=== PATIENT | male | born 1940 | race Caucasian/White ===

== ENCOUNTER → 2018-09-06 16:04 | Outpatient (CLI) | payer MEDICARE, SELFPAY ==
[2018-09-06 17:11] LABS: Basophils % 0.8 % (0.1-2.0); Eosinophils # 0.2 K/mm3 (0.0-0.4); Eosinophils % 3.4 % (0.1-12.0); Lymphocytes # 1.1 K/mm3 (0.7-4.5); Mean Corpuscular HGB Conc 26.2 g/dL (31.8-35.4); Mean Corpuscular Hemoglobin 18.6 pg (27.0-31.2); Mean Corpuscular Volume 71.1 fl (80-94); Mean Platelet Volume 6.6 fl (7.4-10.4); Monocytes # 0.3 K/mm3 (0.1-1.0); Neutrophils % 70.8 % (37.0-80.0); Platelet Count 294 K/mm3 (142-424); Red Blood Count 3.22 M/mm3 (4.60-6.20); Red Cell Distribution Width 22.2 % (11.5-17.5); White Blood Count 5.7 K/mm3 (4.8-10.8)
[2018-09-06 17:30] LABS: Hematocrit 22.9 % (42.0-52.0)
== END ==
PROVIDERS: Visit Provider Nurse Practitioner Family
DX: R53.83 Other fatigue (principal)
CPT/HCPCS: 36415; 85025

== ENCOUNTER → 2018-09-07 07:23 | Outpatient (CLI) | payer MEDICARE, SELFPAY ==
[2018-09-07] VITALS (21 sets, daily range): BP systolic 117–171; BP diastolic 53–77; PULSE 61–77; RESP 16–20; TEMP 36.4–37.3; O2SAT 92–97; BMI 24.2
--- NOTE | 2018-09-07 11:49 | PC.NURSE ---
LATE ENTRY -11:00 CARE ROUNDING. PT VOICED NO NEEDS AT THIS TIME.
[2018-09-07 16:33] LABS: Hematocrit 30.2 % (42.0-52.0); Hemoglobin 8.8 g/dL (14.1-18.0)
== END ==
LOC: OUTP 07:41 → INF 08:13
PROVIDERS: PCP Family Medicine; Visit Provider Family Medicine
DX: D64.9 Anemia, unspecified (principal)
CPT/HCPCS: 36415; 36430; 85014; 85018; 86850; P9016

== ENCOUNTER 2019-07-31 08:13 | Outpatient (CLI) | payer MEDICARE, SELFPAY ==
[2019-07-31] VITALS (20 sets, daily range): BP systolic 92–125; BP diastolic 42–64; PULSE 68–83; RESP 16–18; TEMP 36.4–37.1; O2SAT 92–96; BMI 19.0
[2019-07-31 09:10] LABS: Hematocrit 29.5 % (42.0-52.0); Hemoglobin 8.2 g/dL (14.1-18.0)
--- NOTE | 2019-07-31 10:30 | PC.NURSE ---
1025 - STARTED BLOOD TRANSFUSION AT 100 ML/HR AT THIS TIME.
--- NOTE | 2019-07-31 11:00 | PC.NURSE ---
INCREASED RATE TO 150 ML/HR AT THIS TIME.
--- NOTE | 2019-07-31 11:31 | PC.NURSE ---
INCREASED RATE TO 200ML/HR AT THIS TIME.
--- NOTE | 2019-07-31 12:36 | PC.NURSE ---
1235 - TRANSFUSION STARTED AT 100ML/HR AT THIS TIME.
--- NOTE | 2019-07-31 14:48 | PC.NURSE ---
07/31/19 1305 Pt becca transfusion of 2nd unit of blood well at this time. Patient denies c/o. IV patent with no problems noted. Resp easy/reg, lungs CTA. Eating lunch. VSS. No s/s transfusion reaction noted. Reviewed s/s of transfusion reaction with pt/pt verbalizes understanding of all instruction.
--- NOTE | 2019-07-31 14:53 | PC.NURSE ---
07/31/19 1305 Increased IV rate of blood to 150ml/hr at this time
--- NOTE | 2019-07-31 14:54 | PC.NURSE ---
07/31/49 1335 Pt continues to tolerate transfusion of 2nd unit of blood well with no s/s reaction or problems noted. VSS. Pt denies any c/o at this time. Increased IV rate of blood to 200ml/hr at this time.
--- NOTE | 2019-07-31 14:54 | PC.NURSE ---
07/31/19 1435 Pt tolerating transfusion of 2nd unit of blood well at this time with no s/s reaction or problems noted. VSS. Pt continues to deny c/o. Resp easy/reg.
--- NOTE | 2019-07-31 14:56 | PC.NURSE ---
07/31/19 1440 Transfusion of 2nd unit of blood complete at this time. Pt becca very well. No s/s reaction or problems noted. VSS.
--- NOTE | 2019-07-31 15:46 | PC.NURSE ---
07/31/19 1445 Pt discharged home/stable. Patient denies c/o, has tolerated transfusion of 2 units blood with no problems noted/no s/s transfusion reaction noted. 1 hour post transfusion H&H drawn prior to discharge/pending.
--- NOTE | 2019-07-31 15:49 | PC.NURSE ---
07/31/19 1545 Patient discharged home/stable, has tolerated transfusion of 2 units blood with no problems/no s/s transfusion reaction noted. VSS. Patient denies c/o. 1 hour post transfusion H&H drawn prior to discharge home/pending.
[2019-07-31 16:32] LABS: Hemoglobin 10.6 g/dL (14.1-18.0)
== END 2019-07-31 15:45 | disposition home or self-care (01) ==
LOC: INF 08:17
PROVIDERS: PCP Family Medicine; Visit Provider Nurse Practitioner Family
DX: D64.9 Anemia, unspecified (principal)
CPT/HCPCS: 36430; 85014; 85018; 86850; P9016

== ENCOUNTER 2019-10-16 07:37 | Inpatient (IN) ==
[2019-10-16 08:01] LABS: Microscopic, Urine URINE MICROSCOPIC (MICROSCOPIC)
[2019-10-16 08:02] LABS: Basophils % 0.2 % (0.1-2.0); Eosinophils % 0.1 % (0.1-12.0); Lymphocytes # 0.7 K/mm3 (0.7-4.5); Lymphocytes % 3.6 % (10-50); Mean Corpuscular HGB Conc 29.1 g/dL (31.8-35.4); Mean Corpuscular Volume 90.9 fl (80-94); Mean Platelet Volume 7.7 fl (7.4-10.4); Monocytes # 0.6 K/mm3 (0.1-1.0); Monocytes % 3.1 % (1.7-9.3); Neutrophils # 17.9 K/mm3 (1.8-7.8); Neutrophils % 92.9 % (37.0-80.0); Platelet Count 644 K/mm3 (142-424); Red Blood Count 2.61 M/mm3 (4.60-6.20); Red Cell Distribution Width 19.4 % (11.5-17.5); White Blood Count 19.3 K/mm3 (4.8-10.8)
--- NOTE | 2019-10-16 08:04 | Emergency Department Note ---
ED Disposition Clinical Impression: Mass of colon, Electrolyte imbalance Sepsis Qualifiers: Sepsis type: sepsis due to unspecified organism Sepsis acute organ dysfunction status: without acute organ dysfunction Qualified Code(s): A41.9 - Sepsis, unspecified organism Anemia Qualifiers: Anemia type: unspecified type Qualified Code(s): D64.9 - Anemia, unspecified Abdominal pain Qualifiers: Abdominal location: lower abdomen, unspecified Qualified Code(s): R10.30 - Lower abdominal pain, unspecified Disposition: Admitted As Inpatient Condition on Discharge: Fair (Stable) Instructions: DI for Acute Abdomen Referrals: Obdulia Granados APRN [Primary Care Provider] - Time of Disposition: 09:21 - Critical Care Critical Care Time: No Attestation: On , the high probability of a clinically significant, sudden or life threatening deterioration of the following system(s) required my full and direct attention, intervention and personal management. The time I documented below is in addition to time spent performing reported procedures but includes the following listed in this critical care notation. Medical Decision Making - Medical Records Medical records reviewed: Yes: I reviewed the patient's medical records. - Gasper Inquiry Pt receiving controlled substance: No Gasper was queried for this patient: No Vital Signs: 10/16/19 07:50 10/16/19 09:13 Temperature 97.4 F L Temperature Source Oral Pulse Rate [Right Radial] 100 H 80 Respiratory Rate 18 20 Blood Pressure [Right Arm] 147/62 H 117/56 L Blood Pressure Mean [Right Arm] 90 76 02 Sat by Pulse Oximetry 91 L 92 L Oxygen Delivery Method Room Air Nasal Cannula Oxygen Flow Rate (LPM) 2 - Lab Data Lab results reviewed: Yes: I reviewed the patient's lab results. Lab Results 10/16/19 07:48: Urine Color [place], Urine Appearance Cloudy, Urine pH 6.5, Ur Specific Berry 1.025, Urine Protein 2+, Urine Glucose (UA) Negative, Urine Ketones Trace, Urine Blood Negative, Urine Nitrate Positive, Urine Bilirubin Negative, Urine Urobilinogen >=8.0, Ur Leukocyte Esterase 2+ A, Urine RBC 5-10, Urine WBC 10-20, Ur Squamous Epith Cells 3-5, Ur Transition Epith Cell Occ, Urine Bacteria 1+, Hyaline Casts 3-5, Urine Mucus 2+ 10/16/19 07:50: WBC 19.3 H, RBC 2.61 L, Hgb 6.9 L*, Hct 23.7 L*, MCV 90.9, MCH 26.5 L, MCHC 29.1 L, RDW 19.4 H, Plt Count 644 H, MPV 7.7, Neut % (Auto) 92.9 H, Lymph % (Auto) 3.6 L, Lewis % (Auto) 3.1, Eos % (Auto) 0.1, Baso % (Auto) 0.2, Neut # (Auto) 17.9 H, Lymph # (Auto) 0.7, Lewis # (Auto) 0.6, Eos # (Auto) 0.0, Baso # (Auto) 0.0, Total Counted 100, Neutrophils % (Manual) 92 H, Lymphocytes % (Manual) 4 L, Monocytes % (Manual) 4, Platelet Estimate Clumped, RBC Morphology Not Reportable, Hypochromasia 1+, ESR > 140 H 10/16/19 07:50: Sodium 130 L, Potassium 3.3 L, Chloride 94 L, Carbon Dioxide 26, Anion Gap 13.3, BUN 11, Creatinine 1.04, Estimated Creat Clear 45, Estimated GFR 69, Est GFR ( Amer) 83, Glucose 105, Calcium 7.8 L, C-Reactive Protein 13.6 H, Lipase 59 L 10/16/19 08:55: Stool Occult Blood Positive A 10/16/19 09:00: Crossmatch (AHG) See Detail Result diagrams: 10/16/19 07:50 10/16/19 07:50 Orders (Tests/Meds): ED MEDICATIONS Generic Name Dose Route Start Last Admin Trade Name Freq PRN Reason Stop Dose Admin Sodium Chloride 250 mls @ 25 mls/hr 10/16/19 08:30 Sod Chlor 0.9% 250ml Bag IV 10/17/19 08:29 .Q10H ARSENIO Discontinued Medications Generic Name Dose Route Start Last Admin Trade Name Freq PRN Reason Stop Dose Admin Sodium Chloride 1,000 mls @ 999 mls/hr 10/16/19 08:00 Sod Chlor 0.9% 1000ml Bag IV 10/16/19 09:00 .Q1H1M ARSENIO Sodium Chloride 1,000 mls @ 999 mls/hr 10/16/19 08:00 10/16/19 08:00 Sod Chlor 0.9% 1000ml Bag IV 10/16/19 09:00 999 mls/hr .Q1H1M ARSENIO Administration Ioversol 75 ml 10/16/19 08:36 10/16/19 08:37 Rad-Optiray 350 100ml Vial IV 10/16/19 08:37 75 ml ONCE ONE Administration Protocol Sodium Chloride 10 ml 10/16/19 08:36 10/16/19 08:37 Rad-Saline Flush 10ml Syringe IV 10/16/19 08:37 10 ml ONCE ONE Administration ORDERS Category Date Time Status Transfuse RBC's [Red Blood Cells] Stat BBK 10/16/19 09:00 Received Type and Screen Stat BBK 10/16/19 09:00 Received Diarrhea 6-11 Panel, Cdiff PCR Stat Lab 10/16/19 08:55 Received Lactic Acid Stat Lab 10/16/19 09:00 Received Blood Culture Stat Micro 10/16/19 09:05 Received Urine Culture Stat Micro 10/16/19 07:48 Received - CT Data CT Scan: Abdomen, Pelvis Time Received: 09:[address] Reviewed: Yes: I have reviewed the patient's CT results Findings Narrative: [address] [place] [address] [address] Scan Report Signed Patient: Arley Dailey MR#: [id number] : 1940 Acct:[id number] Age/Sex: 79 / M ADM Date: 10/16/19 Loc: ER Attending Dr: Ordering Physician: Douglas Mccracken MD Date of Service: 10/16/19 Procedure(s): CT abdomen pelvis w con Accession Number(s): [id number] cc: Erick Arcos MD; Douglas Mccracken MD; Obdulia Granados APRN~ PROCEDURE: CT ABDOMEN PELVIS W CON CLINICAL INDICATION: abd pain Cramping diarrhea 4 months COMPARISON: 08/19/2019 TECHNIQUE: IV Contrast: 75ML OPTIRAY 350 Oral Contrast 20ml Gastroview Axial images obtained with sagittal and coronal reformats. All CT scans at the facility use one or more dose reduction, viz: automated exposure control, ma/kV adjustment per patient size (including targeted exams where dose is matched to indication, i.e. head), or iterative reconstruction technique. FINDINGS: LOWER THORAX: There is continued bronchiectasis in the right lung base with emphysematous areas of air trapping in both lungs.3 ABDOMEN & PELVIS: There is diffuse fatty infiltration of the liver. A hypodense lesion is seen now in the right liver dome images 16-18 series 3 approximately 1.3 x 1.7 centimeters in AP and cephalocaudal dimensions. This could represent an area of additional fat infiltration or a neoplasm. There is mild splenomegaly without a discrete lesion. Unchanged parapelvic cysts of the left kidney are noted. The liver, spleen, pancreas, adrenal glands, and kidneys show no acute finding. There is an abnormal conglomerate soft tissue density in the left pelvis possibly arising from the sigmoid colon. This measures at least 4.1 x 4.7 centimeters and is seen on images 81-9 series 3. Sigmoid colonic neoplasm should be considered 1st. Colonoscopy when considered safe is recommended to further evaluate this patient. There is otherwise some wall thickening of the incompletely distended rectosigmoid colon and an air-fluid level is seen in the rectum. These findings are similar to previous exam and would raise the question of colitis. Some increased attenuation of the pericolonic fat planes is noted. No intestinal obstruction or free air or fluid. There is circumferential wall thickening of nondistended urinary bladder unchanged from the previous exam. This could be due to cystitis, or nondistention. The prostate gland appears enlarged and there is extrinsic mass effect on the base of the urinary bladder as before. There is relatively intense enhancement of the prostate gland. This could signify prostatitis. Large prostate neoplasm would be in the differential diagnosis as a less likely consideration.. Correlation with digital rectal exam and PSA is recommended. A stable fluid collection 2.3 x 2.6 centimeters is seen in the right pelvis near the origin of the right inguinal canal. Seroma or lymphocele is suspected. No acute bony anomalies. IMPRESSION: Soft tissue mass along the superior aspect of the sigmoid colon 4.1 x 4.7 centimeters suspicious for colonic origin malignant neoplasm. Inflamed lymphadenopathy could give this appearance. A new hypodense liver lesion could represent a metastasis, other neoplasm, or additional focal fatty infiltration.. Continued findings consistent with rectosigmoid inflammation/colitis as described previously. Heterogeneous enlarged prostate gland with mass effect upon the base of the urinary bladder and enhancement Dictated by: Erick Arcos 10/16/2019 09:01 Electronically signed by Erick Arcos in [place] 10/16/2019 09:01 Medical Decision Narrative: 08:08 Pt evaluated. Screening labs and CT abdomen/pelvis w/IV contrast ordered. 09:[address] of the abdomen and pelvis with IV contrast report reviewed. Case subsequently discussed with Dr. De La Torre. He has agreed to admit this patient. I have ordered Invanz 1 g IV piggyback. Patient has been typed and crossmatched for 2 units of packed red blood cells to be transfused. I have discussed results of work-up, diagnosis and care plan with patient and family. They understand, agree and all questions answered. Patient will now be admitted. Abdominal Pain HPI - General Chief Complaint: Abdominal Pain Stated Complaint: stomach pain,cramping Time Seen by Provider: 10/16/19 08:03 Mode of Arrival: Ambulatory Limitations: No Limitations Description of Symptoms (Recalled from ER Triage Doc. by RN): pt presents to ed with c/o chills, diarrhea when he eats, and lower abdominal pain. - History of Present Illness HPI narrative: Patient is here in emergency room from home for evaluation complaining having lower abdominal pain. He apparently began to have discomfort on Sunday and it has persisted and gotten worse since that time. Patient has had some loose stools; however, the patient apparently has been having the loose stools since summer according to his family member. No chest pain or shortness of breath. He has had some chills. No documented fever. No nausea or vomiting. - Related Data Home Medications Medication Instructions Recorded Confirmed Aspirin [Aspir 81] 81 mg PO HS 07/31/19 08/19/19 Dapsone 150 mg PO DAILY 07/31/19 08/19/19 Ferrous Sulfate [Ferrous Sulfate 325 mg PO DAILY 07/31/19 08/19/19 325mg Tablet] Levothyroxine Sodium 50 mcg PO DAILY 07/31/19 08/19/19 [Levothyroxine 50mcg (0.05mg) Tab] Metoprolol Tartrate [Lopressor 12.5 mg PO BID 07/31/19 08/19/19 25mg tablet] Nitroglycerin 0.4 mg SL NEEDED PRN 07/31/19 08/19/19 Omeprazole [Omeprazole 20mg 20 mg PO DAILY 07/31/19 08/19/19 Capsule] Previous Rx's Medication Instructions Recorded Ciprofloxacin HCl [Cipro 500mg 500 mg PO BID 7 Days #14 tab 08/19/19 Tab] Nitrofurantoin Monohyd/M-Cryst 100 mg PO BID 7 Days #14 cap 08/19/19 [Macrobid 100 mg Capsule] metroNIDAZOLE [Flagyl 500mg 500 mg PO BID 7 Days #14 tab 08/19/19 Tablet] Allergies Allergy/AdvReac Type Severity Reaction Status Date / Time tuberculin, purified protein Allergy Unknown Verified 07/31/19 08:56 deriva [TUBERCULIN, PURIFIED PROTEIN DERIVA] [facility] History - Hepatitis A Screen Drug use history?: No High risk sexual behaviors?: No History of sexually transmitted infection?: No Currently employed?: No Childcare worker?: No Do you have indoor plumbing?: Yes Do you have electricity?: Yes Attestation statement:: This patient has been screened for Hepatitis A risk factors. I have reviewed the patient's past medical history: Yes Medical History: Reports:: Cancer (SKIN CANCERS), Coronary Artery Disease, Hypertension Denies:: Diabetes Mellitus Type 1, Diabetes Mellitus Type 2 Other Medical History: Reports: Anemia, Cataracts, Hypothyroidism Other Surgeries: Yes: Cancer Surgery (SKIN CANCERS REMOVED), Cardiac Catheterization, Hernia Repair, Other (LEFT HAND SURGERY) - Social History Smoking Status: Former smoker Tobacco Type: smokeless tobacco # Packs/Day (cigarettes): 1 Alcohol Intake: never Occupational Status: retired Housing: house Household Members: none Family Hx:: Anemia, Cancer, Coronary Artery Disease, Diabetes, Stroke, Thyroid Disorder, Alcoholism, Mental illness ROS Obtained: Yes All systems reviewed & no additional complaints - Constitutional Constitutional: Reports system reviewed and no additional complaints, except as docu, Reports as per HPI, Reports chills - Eyes Eyes: Reports system reviewed and no additional complaints, except as docu - ENT Ears, Nose, Mouth, and Throat: Reports system reviewed and no additional complaints, except as docu - Cardiovascular Cardiovascular: Reports system reviewed and no additional complaints, except as docu - Respiratory Respiratory: Yes system reviewed and no additional complaints, except as docu - Gastrointestinal Gastrointestingal: Reports: system reviewed and no additional complaints, except as docu, as per HPI, loose stools (since summer). Denies: constipation, nausea, vomiting - Genitourinary Male Genitourinary: Reports system reviewed and no additional complaints, except as docu - Musculoskeletal Musculoskeletal: Reports system reviewed and no additional complaints, except as docu - Integumentary/Breasts Skin/Breast: Reports system reviewed and no additional complaints, except as docu - Neurologic Neurologic: Reports system reviewed and no additional complaints, except as docu - Endocrine Endocrine: Reports system reviewed and no additional complaints, except as docu - Hematologic/Lymphatic Henatologic/Lymphatic: Reports system reviewed and no additional complaints, except as docu - Allergic/Immunologic Allergic/Immunologic: Reports system reviewed and no additional complaints, except as docu Physical Exam - General General appearance: alert, in no apparent distress - Head Head exam: atraumatic, normocephalic - Eye Eye exam: Present: PERRL, EOMI - ENT ENT exam: Present: mucous membranes moist - Neck Neck exam: Present: trachea midline - Chest Chest inspection: Present: normal inspection, symmetric chest wall rise - Respiratory Respiratory exam: Present: normal lung sounds bilaterally. Absent: respiratory distress, wheezes - Cardiovascular Cardiovascular exam: Present: regular rate, normal heart sounds - Abdominal Exam Abdominal exam: Present: soft, tenderness (on palpation of bilateral lower abdomen), diminished bowel sounds. Absent: guarding, rebound, rigidity, Pearce's sign, tenderness at McBurney's Point - Extremities Exam Extremities exam: Present: normal inspection, full ROM - Neurological Exam Neurological exam: Present: alert, oriented X3, CN II-XII intact - Psychiatric Psychiatric exam: Present: normal mood, flat affect - Skin Skin exam: Present: warm, dry, intact. Absent: rash, diaphoresis
[2019-10-16 08:07] LABS: Blood, Urine Negative (Negative); Glucose,Urine (UA) Negative (Negative); Ketones,Urine TRACE (Negative); Leukocyte Esterase,Urine 2+ (Negative); PH,Urine 6.5 (5.0-8.5); Protein,Urine 2+ (Negative); Specific Gravity, Urine 1.025 (1.005-1.030); Urobilinogen,Urine >=8.0 EU/dl (0.2)
[2019-10-16 08:11] LABS: Hematocrit 23.7 % (42.0-52.0); Hemoglobin 6.9 g/dL (14.1-18.0)
[2019-10-16 08:14] LABS: Anion Gap 13.3 mEq/L (5-15); Calcium 7.8 mg/dL (8.5-10.1)
[2019-10-16 08:16] LABS: C-Reactive Protein 13.6 mg/dL (0.0-0.9)
[2019-10-16 08:27] LABS: Erythrocyte Sedimentation Rate > 140 mm/hr (0-20)
[2019-10-16 08:30] LABS: Lymphocytes % 4 % (10-50); Monocytes % 4 % (2-9); Neutrophils % 92 % (42-76); Total Cells Counted 100
[2019-10-16 08:31] LABS: Hypochromasia 1+
[2019-10-16 08:35] LABS: Color,Urine Orange (Yellow)
[2019-10-16 08:36] LABS: Appearance,Urine Cloudy (Clear); Bilirubin,Urine Negative (Negative)
[2019-10-16 08:43] LABS: Bacteria,Urine 1+ /lpf; Mucus,Urine 2+ /lpf
[2019-10-16 08:44] LABS: Transitional Epi Cells,Urine OCC #/lpf (0-3)
--- NOTE | 2019-10-16 10:20 | Pharmacy Consult Notes ---
[facility] Pharmacy VTE Monitoring - Patient Demographics Admission date: 10/16/19 Report Date: 10/16/19 Time: 10:19 Allergies/Adverse Reactions: Patient Allergies tuberculin, purified protein deriva [TUBERCULIN, PURIFIED PROTEIN DERIVA] Allergy (Unknown, Verified 07/31/19 08:56) Height: 1.7 m Weight: 56.699 kg Patient Problems: Current Active Problems Abdominal pain (Acute) Anemia (Acute) Sepsis (Acute) Mass of colon (Acute) Electrolyte imbalance (Acute) - VTE Risk Labs: VTE Related Lab Results Hgb 6.9 g/dL (14.1-18.0) L* 10/16/19 07:50 Hct 23.7 % (42.0-52.0) L* 10/16/19 07:50 Plt Count 644 K/mm3 (142-424) H 10/16/19 07:50 BUN 11 mg/dL (7-18) 10/16/19 07:50 Creatinine 1.04 mg/dL (0.70-1.30) 10/16/19 07:50 Estimated Creat Clear 45 mL/min (50-200) 10/16/19 07:50 - Prophylaxis VTE Prophylaxis Ordered?: Yes Types of VTE Prophylaxis: TEDS Knee High Location of Applied Device: Bilateral Lower Extremeties - VTE Diagnosis Confirmed Treatment or plan recommended: Continue Current Treatment
[2019-10-16 16:39] LABS: Hematocrit 27.3 % (42.0-52.0); Hemoglobin 8.6 g/dL (14.1-18.0)
--- NOTE | 2019-10-16 17:12 | History & Physical Report ---
*Admission Date: 10/16/19 *Chief complaint: abdominal pain *History of present illness: 79-year-old male presented to the emergency department this morning after being brought in by his family due to complaints of abdominal pain with abdominal distention. Patient endorses chronic diarrhea. Patient has had previous bouts of similar abdominal pain in his lower quadrants, most recently in July 2019. At that time CT scan showed findings of colitis in the rectosigmoid area. Repeat CT scan today also showed colitis in the rectosigmoid area along with a possible sigmoid mass. Patient's white count was 19,000 and he met criteria for sepsis. Patient was admitted on IV Invanz. He was also found to be anemic and has already been transfused 2 units of packed red blood cells with adequate response. He reports a long history of diarrhea. He also has a long history of recurring anemia requiring blood transfusions. Colonoscopy has been offered to the patient in the past and he is repeatedly refused. His of breast cancer. He has a daughter who also has an unidentified cancer and his father of liver cancer [facility] History I have reviewed the patient's past medical history: Yes Medical History: Reports:: Cancer (SKIN CANCERS), Coronary Artery Disease, Hypertension Denies:: Diabetes Mellitus Type 1, Diabetes Mellitus Type 2 *Have you ever received a pneumonia vaccine?: No *Have you received a flu vaccine this season?: No Other Medical History: Reports: Anemia, Cataracts, Hypothyroidism Other Surgeries: Yes: Cancer Surgery (SKIN CANCERS REMOVED), Cardiac Catheterization, Hernia Repair, Other (LEFT HAND SURGERY) - *Social History Smoking Status: Former smoker Tobacco Type: smokeless tobacco # Packs/Day (cigarettes): 1 Alcohol Intake: never *Occupational Status:: retired Housing: house Household Members: none *Travel in the last 8 weeks: None Family Hx:: Anemia, Cancer, Coronary Artery Disease, Diabetes, Stroke, Thyroid Disorder, Alcoholism, Mental illness Review of Systems - Constitutional Reports weakness, Denies body ache(s), Denies chills, Denies fever(s) - *Cardiovascular Denies chest pain - *Respiratory Denies change in phlegm color - *Gastrointestinal Reports abdominal pain, Reports bloating, Reports change in bowel habits, Reports cramping, Reports loose stools, Reports constant urge to pass stool, Denies constipation, Denies heartburn, Denies black, tarry stools, Denies nausea Meds Home Medications Medication Instructions Recorded Confirmed Type Aspirin [Aspir 81] 81 mg PO HS 07/31/19 10/16/19 History Levothyroxine Sodium 50 mcg PO DAILY 07/31/19 10/16/19 History [Levothyroxine 50mcg (0.05mg) Tab] Metoprolol Tartrate [Lopressor 12.5 mg PO BID 07/31/19 10/16/19 History 25mg tablet] Omeprazole [Omeprazole 20mg 20 mg PO DAILY 07/31/19 10/16/19 History Capsule] RX: Dapsone 150 mg PO DAILY 07/31/19 10/16/19 History RX: Nitroglycerin 0.4 mg SL NEEDED PRN 07/31/19 10/16/19 History Allergies Allergy/AdvReac Type Severity Reaction Status Date / Time tuberculin, purified protein Allergy Unknown Verified 07/31/19 08:56 deriva [TUBERCULIN, PURIFIED PROTEIN DERIVA] Exam Vital signs and Labs for Last 24 Hours: Temp Pulse Resp BP Pulse Ox 98.8 F 80 16 142/60 H 91 L 10/16/19 15:25 10/16/19 15:25 10/16/19 15:25 10/16/19 15:25 10/16/19 15:25 Laboratory Results - last 24 hr 10/16/19 07:48: Urine Color [place], Urine Appearance Cloudy, Urine pH 6.5, Ur Specific [place] 1.025, Urine Protein 2+, Urine Glucose (UA) Negative, Urine Ketones Trace, Urine Blood Negative, Urine Nitrate Positive, Urine Bilirubin Negative, Urine Urobilinogen >=8.0, Ur Leukocyte Esterase 2+ A, Urine RBC 5-10, Urine WBC 10-20, Ur Squamous Epith Cells 3-5, Ur Transition Epith Cell Occ, Urine Bacteria 1+, Hyaline Casts 3-5, Urine Mucus 2+ 10/16/19 07:50: WBC 19.3 H, RBC 2.61 L, Hgb 6.9 L*, Hct 23.7 L*, MCV 90.9, MCH 26.5 L, MCHC 29.1 L, RDW 19.4 H, Plt Count 644 H, MPV 7.7, Neut % (Auto) 92.9 H, Lymph % (Auto) 3.6 L, [place] % (Auto) 3.1, Eos % (Auto) 0.1, Baso % (Auto) 0.2, Neut # (Auto) 17.9 H, Lymph # (Auto) 0.7, [place] # (Auto) 0.6, Eos # (Auto) 0.0, Baso # (Auto) 0.0, Total Counted 100, Neutrophils % (Manual) 92 H, Lymphocytes % (Manual) 4 L, Monocytes % (Manual) 4, Platelet Estimate Clumped, RBC Morphology Not Reportable, Hypochromasia 1+, ESR > 140 H 10/16/19 07:50: Sodium 130 L, Potassium 3.3 L, Chloride 94 L, Carbon Dioxide 26, Anion Gap 13.3, BUN 11, Creatinine 1.04, Estimated Creat Clear 45, Estimated GFR 69, Est GFR ( Amer) 83, Glucose 105, Calcium 7.8 L, C-Reactive Protein 13.6 H, Lipase 59 L 10/16/19 07:50: TSH 0.50 D 10/16/19 08:55: Stl Aeromonas (PCR) Not detected, Stl C. cayetanensis PCR Not detected, Stool Rotavirus (PCR) Not detected, Stl Adenov F 40/41 PCR Not detected, Stool Astrovirus (PCR) Not detected, Stool Campylobacter PCR Not detected, Stl C.difficile Tox PCR Not detected, Stool Cryptosporidium PCR Not detected, Stl E.coli Shiga Tox PCR Not detected, Stool E coli O157 PCR Not detected, Stl Enterotoxigenic E PCR Not detected, Stool EPEC (PCR) Not detected, Stool EAEC (PCR) Not detected, Stl E. histolytica PCR Not detected, Stool Giardia Lamblia PCR Not detected, Stool Salmonella PCR Not detected, Stool Sapovirus (PCR) Not detected, Stl P. shigelloides PCR Not detected, Stl Shigella/EIEC PCR Not detected, St Y.enterocolitica PCR Not detected, Stool Vibrio (PCR) Not detected, Stl Vibrio cholerae PCR Not detected, Stl Norovirus GI/GII PCR Not detected 10/16/19 08:55: Stool Occult Blood Positive A 10/16/19 09:00: Blood Type O Positive, Antibody Screen Negative, Crossmatch (AHG) See Detail 10/16/19 09:00: Lactate 2.5 H 10/16/19 13:38: Lactate 0.9 10/16/19 16:25: Hgb 8.6 L D, Hct 27.3 L I & O for Last 24 hours: Intake & Output 10/14/19 10/15/19 10/16/19 10/17/19 11:59 11:59 11:59 11:59 Intake Total 1000 / 1000 522.25 / 522.25 Balance 1000 / 1000 522.25 / 522.25 Weight 126 lb 3 oz Narrative: Elderly male in no acute distress. Is reported by nursing his pallor has improved. ENT exam is grossly normal. Lungs are clear to auscultation. Heart has a regular rate and rhythm. Abdomen is mildly distended with left and right lower quadrant tenderness to palpation with active bowel sounds. Extremities are without edema. Neurologically there is no gross neurologic deficit. Assessment and Plan (1) Neoplasm of uncertain behavior of colon Current visit: Yes Status: Suspected Category: Medical Code(s): D37.4 - Neoplasm of uncertain behavior of colon (2) Abdominal pain Current visit: Yes Status: Acute Qualifiers: Abdominal location: lower abdomen, unspecified Qualified Code(s): R10.30 - Lower abdominal pain, unspecified Category: Medical Code(s): R10.9 - Unspecified abdominal pain (3) Colitis Current visit: No Status: Acute Category: Medical Code(s): K52.9 - Noninfective gastroenteritis and colitis, unspecified (4) Diarrhea Current visit: No Status: Acute Category: Medical Code(s): R19.7 - Kathi rrhea, unspecified (5) Urinary tract infection Current visit: No Status: Acute Category: Medical Code(s): N39.0 - Urinary tract infection, site not specified (6) Anemia due to GI blood loss Current visit: Yes Status: Acute Category: Medical Code(s): D50.0 - Iron deficiency anemia secondary to blood loss (chronic) - Assessment and plan all Dx Assessment and Plan for all problems:: 1. Patient has been transfused 2 units of packed red blood cells with adequate response. He will have repeat H&H this evening with possible additional transfusions 2. While patient is been resistant in the past to colonoscopy I did discuss need for limited viewing of the area where there is an apparent mass. He is agreeable to gastroenterology consultation with limited colonoscopy and or flexible sigmoidoscopy by Dr. Leo. Consultation will be placed. Patient will be given an enema this evening. 3. Continue broad-spectrum antibiotic coverage
[2019-10-16 22:08] LABS: Hematocrit 26.6 % (42.0-52.0); Hemoglobin 8.3 g/dL (14.1-18.0)
[2019-10-17 06:43] LABS: Basophils % 0.2 % (0.1-2.0); Eosinophils # 0.1 K/mm3 (0.0-0.4); Eosinophils % 0.9 % (0.1-12.0); Mean Platelet Volume 8.1 fl (7.4-10.4); Monocytes % 3.5 % (1.7-9.3)
[2019-10-17 06:46] LABS: Hematocrit 37.2 % (42.0-52.0); Lymphocytes # 0.8 K/mm3 (0.7-4.5); Lymphocytes % 5.8 % (10-50); Mean Corpuscular HGB Conc 32.2 g/dL (31.8-35.4); Mean Corpuscular Volume 87.1 fl (80-94); Monocytes # 0.5 K/mm3 (0.1-1.0); Neutrophils # 11.6 K/mm3 (1.8-7.8); Neutrophils % 89.6 % (37.0-80.0); Platelet Count 320 K/mm3 (142-424); Red Blood Count 4.28 M/mm3 (4.60-6.20); Red Cell Distribution Width 17.3 % (11.5-17.5)
[2019-10-17 06:52] LABS: Anion Gap 11.4 mEq/L (5-15)
--- NOTE | 2019-10-17 07:23 | Progress Note ---
Internal Medicine - PN: Subj *Date: 10/17/19 *Time: 07:21 Interval history: Patient states he is feeling better this morning and he would like to go home. I did remind the patient he did agree to limited colonoscopy or flexible sigmoidoscopy for evaluation of potential sigmoid mass. Exam Vital signs and Labs for Last 24 Hours: Temp Pulse Resp BP Pulse Ox 98.0 F 71 18 133/57 L 93 L 10/17/19 06:00 10/17/19 06:00 10/17/19 06:00 10/17/19 06:00 10/17/19 06:00 Laboratory Results - last 24 hr 10/16/19 07:48: Urine Color [place], Urine Appearance Cloudy, Urine pH 6.5, Ur Specific [place] 1.025, Urine Protein 2+, Urine Glucose (UA) Negative, Urine Ketones Trace, Urine Blood Negative, Urine Nitrate Positive, Urine Bilirubin Negative, Urine Urobilinogen >=8.0, Ur Leukocyte Esterase 2+ A, Urine RBC 5-10, Urine WBC 10-20, Ur Squamous Epith Cells 3-5, Ur Transition Epith Cell Occ, Urine Bacteria 1+, Hyaline Casts 3-5, Urine Mucus 2+ 10/16/19 07:50: WBC 19.3 H, RBC 2.61 L, Hgb 6.9 L*, Hct 23.7 L*, MCV 90.9, MCH 26.5 L, MCHC 29.1 L, RDW 19.4 H, Plt Count 644 H, MPV 7.7, Neut % (Auto) 92.9 H, Lymph % (Auto) 3.6 L, [place] % (Auto) 3.1, Eos % (Auto) 0.1, Baso % (Auto) 0.2, Neut # (Auto) 17.9 H, Lymph # (Auto) 0.7, [place] # (Auto) 0.6, Eos # (Auto) 0.0, Baso # (Auto) 0.0, Total Counted 100, Neutrophils % (Manual) 92 H, Lymphocytes % (Manual) 4 L, Monocytes % (Manual) 4, Platelet Estimate Clumped, RBC Morphology Not Reportable, Hypochromasia 1+, ESR > 140 H 10/16/19 07:50: Sodium 130 L, Potassium 3.3 L, Chloride 94 L, Carbon Dioxide 26, Anion Gap 13.3, BUN 11, Creatinine 1.04, Estimated Creat Clear 45, Estimated GFR 69, Est GFR ( Amer) 83, Glucose 105, Calcium 7.8 L, C-Reactive Protein 13.6 H, Lipase 59 L 10/16/19 07:50: TSH 0.50 D 10/16/19 08:55: Stl Aeromonas (PCR) Not detected, Stl C. cayetanensis PCR Not detected, Stool Rotavirus (PCR) Not detected, Stl Adenov F 40/41 PCR Not detect ed, Stool Astrovirus (PCR) Not detected, Stool Campylobacter PCR Not detected, Stl C.difficile Tox PCR Not detected, Stool Cryptosporidium PCR Not detected, Stl E.coli Shiga Tox PCR Not detected, Stool E coli O157 PCR Not detected, Stl Enterotoxigenic E PCR Not detected, Stool EPEC (PCR) Not detected, Stool EAEC (PCR) Not detected, Stl E. histolytica PCR Not detected, Stool Giardia Lamblia PCR Not detected, Stool Salmonella PCR Not detected, Stool Sapovirus (PCR) Not detected, Stl P. shigelloides PCR Not detected, Stl Shigella/EIEC PCR Not detected, St Y.enterocolitica PCR Not detected, Stool Vibrio (PCR) Not detected, Stl Vibrio cholerae PCR Not detected, Stl Norovirus GI/GII PCR Not detected 10/16/19 08:55: Stool Occult Blood Positive A 10/16/19 09:00: Blood Type O Positive, Antibody Screen Negative, Crossmatch (AHG) See Detail 10/16/19 09:00: Lactate 2.5 H 10/16/19 13:38: Lactate 0.9 10/16/19 16:25: Hgb 8.6 L D, Hct 27.3 L 10/16/19 22:02: Hgb 8.3 L, Hct 26.6 L 10/17/19 06:23: WBC 13.0 H D, RBC 4.28 L D, Hgb 12.0 L D, Hct 37.2 L, MCV 87.1, MCH 28.0, MCHC 32.2, RDW 17.3, Plt Count 320 D, MPV 8.1, Neut % (Auto) 89.6 H, Lymph % (Auto) 5.8 L, [place] % (Auto) 3.5, Eos % (Auto) 0.9, Baso % (Auto) 0.2, Neut # (Auto) 11.6 H, Lymph # (Auto) 0.8, [place] # (Auto) 0.5, Eos # (Auto) 0.1, Baso # (Auto) 0.0 10/17/19 06:23: Sodium 131 L, Potassium 3.4 L, Chloride 97 L, Carbon Dioxide 26, Anion Gap 11.4, BUN 9, Creatinine 0.78 D, Estimated Creat Clear 47, Estimated GFR 96, Est GFR ( Amer) 116 D, Glucose 83 D, Calcium 8.0 L I & O for Last 24 hours: Intake & Output 10/14/19 10/15/19 10/16/19 10/17/19 11:59 11:59 11:59 11:59 Intake Total 1000 / 1000 1342.25 / 1342.25 Balance 1000 / 1000 1342.25 / 1342.25 Weight 126 lb 3 oz 127 lb 8 oz Narrative: Patient is awake and alert sitting up on the side of the bed. Abdomen is soft and without tenderness this morning. Bowel sounds are present. Assessment and Plan (1) Neoplasm of uncertain behavior of colon Current visit: Yes Status: Suspected Category: Medical Code(s): D37.4 - Neoplasm of uncertain behavior of colon (2) Abdominal pain Current visit: Yes Status: Acute Qualifiers: Abdominal location: lower abdomen, unspecified Qualified Code(s): R10.30 - Lower abdominal pain, unspecified Category: Medical Code(s): R10.9 - Unspecified abdominal pain (3) Colitis Current visit: No Status: Acute Category: Medical Code(s): K52.9 - Noninfective gastroenteritis and colitis, unspecified (4) Diarrhea Current visit: No Status: Acute Category: Medical Code(s): R19.7 - Diarrhea, unspecified (5) Urinary tract infection Current visit: No Status: Acute Category: Medical Code(s): N39.0 - Urinary tract infection, site not specified (6) Anemia due to GI blood loss Current visit: Yes Status: Acute Category: Medical Code(s): D50.0 - Iron deficiency anemia secondary to blood loss (chronic) - Assessment and plan all Dx Assessment and Plan for all problems:: I would like for an attempt to be made to visualize this potential mass and possibly biopsy it. We will await Dr. Leo evaluation this morning. Conceivably this could be done as an outpatient as well although I do have concerns about patient's compliance with follow-up
[2019-10-17 10:08] LABS: Lymphocytes % 9 % (10-50); Monocytes % 3 % (2-9); Neutrophils % 88 % (42-76); Total Cells Counted 100
[2019-10-17 10:09] LABS: Hypochromasia 1+
--- NOTE | 2019-10-17 13:07 | Progress Note ---
[facility] Anesthesia Checklist - Patient Identification Patient Identification: Arm Band, Verbal (Name & ) - Structural Data Admitted From: Inpatient Planned Operative Procedure/s: Flexible sigmoidoscopy Consent for Planned Operative Procedure(s) Verified: Yes Verified Documents: Surgical Consent, History and Physical - NPO Status Verified Time NPO: 00:00 - Chart Verification Results Verified: CBC, BMP - Additional verifications Anesthesia Reactions: No - Airway Assessment C-Spine Mobility Assessed: Yes TMJ Mobility Assessed: Yes Dentition: Edentulous - Neurological Assessment Level of Consciousness: Awake, Alert, Appropriate, Follows Commands Hx Seizures: No Numbness or tingling in extremities: No - Anesthesia Plan Anesthesia Risk discussed: Yes Anesthesia Plan: Verified ASA Class: III Anesthesia Type: MAC [facility] History I have reviewed the patient's past medical history: Yes Medical History: Reports:: Cancer (SKIN CANCERS), Coronary Artery Disease, Gastroesophageal Reflux Disease(GERD), Hypertension Denies:: Diabetes Mellitus Type 1, Diabetes Mellitus Type 2 *Have you ever received a pneumonia vaccine?: No *Have you received a flu vaccine this season?: No Other Medical History: Reports: Anemia, Cataracts, Hypothyroidism Anesthesia experience/problems:: none Other Surgeries: Yes: Cancer Surgery (SKIN CANCERS REMOVED), Cardiac Catheterization, Hernia Repair, Other (LEFT HAND SURGERY) - *Social History Smoking Status: Former smoker Tobacco Type: smokeless tobacco # Packs/Day (cigarettes): 1 Alcohol Intake: never Substance Use Type: denies use *Occupational Status:: retired Housing: house Household Members: none *Travel in the last 8 weeks: None Family Hx:: Anemia, Cancer, Coronary Artery Disease, Diabetes, Stroke, Thyroid Disorder, Alcoholism, Mental illness
--- NOTE | 2019-10-17 13:21 | Procedure Note ---
[facility] Procedure Note Procedure Note:: Flexible Sigmoidoscopy Procedure Report: Sigmoidoscopy with cold biopsies Endoscopist: Marcelo Leo II, MD Referring physician: Joseluis De La Torre MD Date of Procedure: October 17, 2019 Equipment: Olympus 180 variable stiffness pediatric colonoscope Sedation: MAC sedation Indication: Mr. Dailey is an 79-year-old gentleman who recently has had lower abdominal pain and discomfort with abdominal distention. He has had some diarrhea. He presented with the symptoms and hemoglobin/hematocrit of 6.9 and 23.7. He previously refused colonoscopy. His daughter has had identified cancer (unknown primary). His father also had cancer. The patient has had moderate weight loss. A CAT scan of the abdomen and pelvis did show some thickening of the colon in the rectosigmoid. The patient is Hemoccult positive. Procedure: Prior to the procedure, a history and physical exam was performed, and patient's medications and allergies were reviewed. The risks, benefits and alternatives of the sedation and procedure were discussed with the patient. All questions were answered and informed consent was obtained. The patient was brought to the procedure room. Patient identification and proposed procedure were verified by the physician and the nurse. The patient was placed in a left lateral decubitus position and the scope was passed under direct vision. Throughout the procedure, the patient's blood pressure, pulse, and oxygen saturations were monitored continuously. The colonoscopy was accomplished without difficulty. The patient tolerated the procedure well. Findings: On digital rectal examination there was a palpable circumferential large and fixed rectal mass at 5 to 6 cm from the pectinate line. The scope was then inserted through the anal canal into the rectum and advanced to the sigmoid colon. There was a circumferential friable and fungating apple core mass lesion. The scope was advanced and this was elongated and extended at least 8 cm proximally. There was a marked amount of brown liquid stool making visualization difficult. Multiple biopsies were obtained. This was consistent with colorectal cancer/adenocarcinoma involving proximal rectum and rectosigmoid and was measurably 6 to 8 cm from the pectinate line. Impression: 1. Large fixed circumferential rectal/rectosigmoid "apple core" colonic mass consistent with colorectal cancer Plan: The patient is passing brown liquid stool but this is large and there is certainly risk of colonic obstruction. This is the source of his anemia and chronic GI blood loss. It is also the source of his abdominal discomfort and change in bowel habits. I will discussed the case with Dr. De La Torre. I do feel that surgery will be warranted even if for palliative purposes. This is a very lengthy tumor which may make it more difficult to place colonic stent.
[2019-10-18 07:25] LABS: Basophils % 0.3 % (0.1-2.0); Eosinophils # 0.1 K/mm3 (0.0-0.4); Eosinophils % 0.4 % (0.1-12.0); Hematocrit 37.7 % (42.0-52.0); Hemoglobin 11.7 g/dL (14.1-18.0); Lymphocytes # 0.6 K/mm3 (0.7-4.5); Lymphocytes % 4.7 % (10-50); Mean Corpuscular Volume 89.1 fl (80-94); Mean Platelet Volume 7.1 fl (7.4-10.4); Monocytes # 0.4 K/mm3 (0.1-1.0); Monocytes % 3.6 % (1.7-9.3); Neutrophils # 11.2 K/mm3 (1.8-7.8); Platelet Count 325 K/mm3 (142-424); Red Blood Count 4.24 M/mm3 (4.60-6.20); Red Cell Distribution Width 17.4 % (11.5-17.5); White Blood Count 12.3 K/mm3 (4.8-10.8)
[2019-10-18 07:34] LABS: Anion Gap 12.9 mEq/L (5-15)
[2019-10-18 07:52] LABS: Eosinophils % 1 % (0-3); Lymphocytes % 8 % (10-50); Monocytes % 2 % (2-9); Neutrophils % 88 % (42-76); Total Cells Counted 100
--- NOTE | 2019-10-18 08:00 | Progress Note ---
Internal Medicine - PN: Subj *Date: 10/18/19 *Time: 07:57 Interval history: Patient underwent a limited colonoscopy yesterday which revealed a rectosigmoid mass measuring at least 8 cm in length and appearing circumferential with high likelihood of obstruction in the future. See Dr. Leo note for full details. Both yesterday afternoon and this morning conversation was had with the patient alone as there was no family present about how he would like to pursue treatment. Patient had stated on admission that if he was diagnosed with cancer he did not want any further treatments. He is now reconsidering that position and states he wants to do "what ever it takes to get better. Exam Vital signs and Labs for Last 24 Hours: Temp Pulse Resp BP Pulse Ox 98.5 F 80 18 143/68 H 92 L 10/18/19 04:00 10/18/19 04:00 10/18/19 04:00 10/18/19 04:00 10/18/19 04:00 Laboratory Results - last 24 hr 10/17/19 06:23: Total Counted 100, Neutrophils % (Manual) 88 H, Lymphocytes % (Manual) 9 L, Monocytes % (Manual) 3, Platelet Estimate Marked decrease, Hypochromasia 1+ 10/18/19 07:08: WBC 12.3 H, RBC 4.24 L, Hgb 11.7 L, Hct 37.7 L, MCV 89.1, MCH 27.6, MCHC 31.0 L, RDW 17.4, Plt Count 325, MPV 7.1 L, Neut % (Auto) 91.0 H, Lymph % (Auto) 4.7 L, [place] % (Auto) 3.6, Eos % (Auto) 0.4, Baso % (Auto) 0.3, Neut # (Auto) 11.2 H, Lymph # (Auto) 0.6 L, [place] # (Auto) 0.4, Eos # (Auto) 0.1, Baso # (Auto) 0.0, Total Counted 100, Neutrophils % (Manual) 88 H, Lymphocytes % (Manual) 8 L, Monocytes % (Manual) 2, Eosinophils % (Manual) 1, Metamyelocytes % 1.0, Platelet Estimate Normal, Poikilocytosis 1+, Acanthocytes (Spur) 1+ 10/18/19 07:08: Sodium 133 L, Potassium 2.9 L*, Chloride 98, Carbon Dioxide 25, Anion Gap 12.9, BUN 9, Creatinine 0.72, Estimated Creat Clear 45, Estimated GFR 105, Est GFR ( Amer) 127, Glucose 72 L, Calcium 8.0 L I & O for Last 24 hours: Intake & Output 10/15/19 10/16/19 10/17/19 10/18/19 11:59 11:59 11:59 11:59 Intake Total 1000 / 1000 1342.25 / 1342.25 300 / 300 Balance 1000 / 1000 1342.25 / 1342.25 300 / 300 Weight 126 lb 3 oz 127 lb 8 oz 120 lb 7.999 oz Microbiology Reports for the Last 24 Hours: Microbiology 10/16/19 07:48 Urine,Clean Catch Urine Culture - Preliminary Narrative: Patient is awake and alert. He is oriented to person and place. Lungs are clear. Heart has a regular rate and rhythm. Abdomen is soft and nontender with active bowel sounds. Assessment and Plan (1) Colon cancer Current visit: Yes Status: Acute Category: Medical Code(s): C18.9 - Malignant neoplasm of colon, unspecified (2) Neoplasm of uncertain behavior of colon Current visit: Yes Status: Suspected Category: Medical Code(s): D37.4 - Neoplasm of uncertain behavior of colon (3) Abdominal pain Current visit: Yes Status: Acute Qualifiers: Abdominal location: lower abdomen, unspecified Qualified Code(s): R10.30 - Lower abdominal pain, unspecified Category: Medical Code(s): R10.9 - Unspecified abdominal pain (4) Colitis Current visit: No Status: Acute Category: Medical Code(s): K52.9 - Noninfective gastroenteritis and colitis, unspecified (5) Diarrhea Current visit: No Status: Acute Category: Medical Code(s): R19.7 - Diarrhea, unspecified (6) Urinary tract infection Current visit: No Status: Acute Category: Medical Code(s): N39.0 - Urinary tract infection, site not specified (7) Anemia due to GI blood loss Current visit: Yes Status: Acute Category: Medical Code(s): D50.0 - Iron deficiency anemia secondary to blood loss (chronic) - Assessment and plan all Dx Assessment and Plan for all problems:: I will consult general surgery to explain patient surgical treatment whether it be for curative purposes or for palliation to prevent obstruction. Dr. Leo was unsure if a colonic stent would be long enough considering the length of the cancer. Attempts to reach the family have failed this morning
--- NOTE | 2019-10-18 12:23 | Discharge Summary ---
General - General Admission date:: 10/16/19 Discharge date: 10/18/19 HPI HPI: 79-year-old male presented to the emergency department this morning after being brought in by his family due to complaints of abdominal pain with abdominal distention. Patient endorses chronic diarrhea. Patient has had previous bouts of similar abdominal pain in his lower quadrants, most recently in July 2019. At that time CT scan showed findings of colitis in the rectosigmoid area. Repeat CT scan today also showed colitis in the rectosigmoid area along with a possible sigmoid mass. Patient's white count was 19,000 and he met criteria for sepsis. Patient was admitted on IV Invanz. He was also found to be anemic and has already been transfused 2 units of packed red blood cells with adequate response. He reports a long history of diarrhea. He also has a long history of recurring anemia requiring blood transfusions. Colonoscopy has been offered to the patient in the past and he is repeatedly refused. His of breast cancer. He has a daughter who also has an unidentified cancer and his father of liver cancer Hospital Course Hospital Course: Patient was admitted and transfused 2 units of packed red blood cells with good response. Due to suspected further blood loss he was transfused an additional 2 units on the day of admission totaling 4 units. Discussion was had with the patient about a need for a work-up of the cause of his recurrent anemia as he is history was highly suspicious for malignancy. Patient agreed and on October 17 underwent a limited colonoscopy by Dr. Leo which revealed neoplasm in the rectosigmoid colon. Patient was observed overnight and H&H remained stable. Discussion was had with both the patient and his family regarding treatment options and they wanted some time to consider the different courses of care. Patient was discharged home on the and will follow-up in my office on October 23. Objective Vital signs: Temp Pulse Resp BP Pulse Ox 98.3 F 85 20 140/59 L 88 L 10/18/19 07:58 10/18/19 07:58 10/18/19 07:58 10/18/19 07:58 10/18/19 08:00 Results Labs on day of discharge: Labs from last 24 hours 10/18/19 10/18/19 10/16/19 07:08 07:08 07:48 WBC 12.3 H RBC 4.24 L Hgb 11.7 L Hct 37.7 L MCV 89.1 MCH 27.6 MCHC 31.0 L RDW 17.4 Plt Count 325 MPV 7.1 L Neut % (Auto) 91.0 H Lymph % (Auto) 4.7 L [place] % (Auto) 3.6 Eos % (Auto) 0.4 Baso % (Auto) 0.3 Neut # (Auto) 11.2 H Lymph # (Auto) 0.6 L [place] # (Auto) 0.4 Eos # (Auto) 0.1 Baso # (Auto) 0.0 Total Counted 100 Neutrophils % (Manual) 88 H Lymphocytes % (Manual) 8 L Monocytes % (Manual) 2 Eosinophils % (Manual) 1 Metamyelocytes % 1.0 Platelet Estimate Normal Poikilocytosis 1+ Acanthocytes (Spur) 1+ Sodium 133 L Potassium 2.9 L* Chloride 98 Carbon Dioxide 25 Anion Gap 12.9 BUN 9 Creatinine 0.72 Estimated Creat Clear 45 Estimated GFR 105 Est GFR ( Amer) 127 Glucose 72 L Calcium 8.0 L Urine Color [place] Urine Appearance Cloudy Urine pH 6.5 Ur Specific [place] 1.025 Urine Protein 2+ Urine Glucose (UA) Negative Urine Ketones Trace Urine Blood Negative Urine Nitrate Positive Urine Bilirubin Negative Urine Urobilinogen >=8.0 Ur Leukocyte Esterase 2+ A Urine RBC 5-10 Urine WBC 10-20 Ur Squamous Epith Cells 3-5 Ur Transition Epith Cell Occ Urine Bacteria 1+ Hyaline Casts 3-5 Urine Mucus 2+ Preliminary micro results at discharge 10/16/19 09:05 Blood Culture - Preliminary Blood NO GROWTH AFTER 48 HOURS 10/16/19 09:00 Blood Culture - Preliminary Blood NO GROWTH AFTER 48 HOURS 10/16/19 07:48 Urine Culture - Preliminary Urine,Clean Catch Gram Positive Cocci DS: Diagnosis - Discharge Diagnosis (1) Colon cancer Status: Acute (2) Neoplasm of uncertain behavior of colon Status: Suspected (3) Abdominal pain Status: Acute (4) Colitis Status: Acute (5) Diarrhea Status: Acute (6) Urinary tract infection Status: Acute (7) Anemia due to GI blood loss Status: Acute Discharge Plan - Patient Discharge Instructions ACTIVITY: Continue current activity DIET: continue same diet Patient Instructions: Anemia - Follow up Plan Follow up with: Joseluis De La Torre MD [Staff Physician] - 2 days Disposition: Home, Self-Long-Term Medications: Home Medications Medication Instructions Recorded Confirmed Type Aspirin [Aspir 81] 81 mg PO HS 07/31/19 10/16/19 History Dapsone 150 mg PO DAILY 07/31/19 10/16/19 History Levothyroxine Sodium 50 mcg PO DAILY 07/31/19 10/16/19 History [Levothyroxine 50mcg (0.05mg) Tab] Metoprolol Tartrate [Lopressor 12.5 mg PO BID 07/31/19 10/16/19 History 25mg tablet] Nitroglycerin 0.4 mg SL NEEDED PRN 07/31/19 10/16/19 History Omeprazole [Omeprazole 20mg 20 mg PO DAILY 07/31/19 10/16/19 History Capsule] Ciprofloxacin HCl [Cipro 500mg 500 mg PO BID #10 tab 10/17/19 Rx Tab] metroNIDAZOLE [metroNIDAZOLE 500mg 500 mg PO TID #15 tab 10/17/19 Rx Tablet] Prescriptions/Medication Reconciliation: New Ciprofloxacin HCl [Cipro 500mg Tab] 500 mg PO BID #10 tab metroNIDAZOLE [metroNIDAZOLE 500mg Tablet] 500 mg PO TID #15 tab Continued Dapsone 150 mg PO DAILY Levothyroxine Sodium [Levothyroxine 50mcg (0.05mg) Tab] 50 mcg PO DAILY Omeprazole [Omeprazole 20mg Capsule] 20 mg PO DAILY Metoprolol Tartrate [Lopressor 25mg tablet] 12.5 mg PO BID Aspirin [Aspir 81] 81 mg PO HS Nitroglycerin 0.4 mg SL NEEDED PRN PRN Reason: Chest Pain - Problem Reconciliation Problems Reviewed?: Yes
== END 2019-10-18 13:25 | disposition home or self-care (01) | DRG 375 ==
LOC: ER 07:37 → 2ND 09:46
PROVIDERS: ADMIT Family Medicine; ATTEND Family Medicine
CPT/HCPCS: 36415; 71260; 74177; 80048; 81001; 82272; 83605; 83690; 84443; 85007; 85014; 85018; 85025; 85651; 86140; 86850; 87040; 87086; 87088; 87186; 87506; 88305; 94761; 96365; 96367; 99285; G0328; J1335; P9016; Q9967

== ENCOUNTER 2019-10-31 13:45 | Observation (INO) ==
--- NOTE | 2019-10-31 14:40 | Emergency Department Note ---
[facility] [place] Disposition Clinical Impression: Hypokalemia, Lactic acid increased Anemia Qualifiers: Anemia type: iron deficiency Iron deficiency anemia type: chronic blood loss Qualified Code(s): D50.0 - Iron deficiency anemia secondary to blood loss (chronic) Disposition: Still a Patient Condition on Discharge: Undetermined Additional Instructions: Transferred to ER. Presumed UTI but unable to provide specimen at this time. Referrals: Obdulia Granados APRN [Primary Care Provider] - Time of Disposition: 16:01 Medical Decision Making - [place] Inquiry Pt receiving controlled substance: No Vital Signs: 10/31/19 13:52 10/31/19 14:06 Temperature 98.4 F Temperature Source Oral Pulse Rate [Radial] 138 H 139 H Respiratory Rate 18 26 H Blood Pressure [Right Arm] 114/52 L Blood Pressure Mean [Right Arm] 72 Blood Pressure Source [Right Arm] Automatic Cuff Blood Pressure Position [Right Arm] Sitting 02 Sat by Pulse Oximetry 95 92 L Oxygen Delivery Method Room Air Room Air - Lab Data Lab results reviewed: Yes: I reviewed the patient's lab results. Lab Results 10/31/19 14:19: Influenza Type A Ag Negative, Influenza Type B Ag Negative 10/31/19 14:40: WBC 10.9 H, RBC 2.97 L, Hgb 7.9 L*, Hct 26.4 L, MCV 88.7, MCH 26.6 L, MCHC 30.0 L, RDW 20.7 H, Plt Count 544 H, MPV 6.9 L, Neut % (Auto) 95.9 H, Lymph % (Auto) 1.7 L, White % (Auto) 1.3 L, Eos % (Auto) 0.8, Baso % (Auto) 0.2, Neut # (Auto) 10.5 H, Lymph # (Auto) 0.2 L, White # (Auto) 0.2, Eos # (Auto) 0.1, Baso # (Auto) 0.0, Total Counted 100, Neutrophils % (Manual) 91 H, Lymphocytes % (Manual) 3 L, Monocytes % (Manual) 5, Eosinophils % (Manual) 1, Platelet Estimate Slight increase, Hypochromasia 1+, Poikilocytosis 1+, Acanthocytes (Spur) 1+ 10/31/19 14:40: Lactate 4.3 H 02/07/20 14:40: Sodium 129 L, Potassium 3.2 L, Chloride 97 L, Carbon Dioxide 23, Anion Gap 12.2, BUN 12, Creatinine 1.08, Estimated Creat Clear 43, Estimated GFR 66, Est GFR ( Amer) 79, Glucose 125 H, Calcium 7.9 L, Total Bilirubin 1.3 H, AST 33, ALT 12, Alkaline Phosphatase 107, Total Protein 6.3 L, Albumin 2.2 L, Globulin 4.1 H, Albumin/Globulin Ratio 0.5 L Result diagrams: 10/31/19 14:40 10/31/19 14:40 Orders (Tests/Meds): ORDERS Category Date Time Status Blood Culture Stat Micro 10/31/19 14:40 Received - Radiology Data #1 Image(s): Chest Image Reviewed: Yes I have reviewed radiologist's interpretation Preliminary Findings: Normal/NAD [facility] [place] HPI - General Stated complaint: shaking spells and says he cold Time Seen by Provider: 10/31/19 14:10 Mode of Arrival: Family Vehicle Source of Information: Patient Limitations: No Limitations Description of Symptoms (Recalled from Triage Doc. by RN): C/O BEING SHAKEY AND COLD. HAS DX OF COLON CANCER AND WAS IN HOSPITAL LAST WEEK HEENT Symptoms (Recalled from RN notes): No Resp Symptoms (Recalled from RN notes): No Skin Symptoms (Recalled from RN notes): No MS Symptoms (Recalled from RN notes): No Functional Status (Recalled from RN notes): N/A - History of Present Illness Provider Complaint: Patient presents with episodes of shaking and cold chills since last night. He was diagnosed with colon cancer 10/16 and was transferred to another facility. He has been home for a few days. Told his son this am that he gets cold and shakes at times. They think he was told he had fluid on his lungs and should be taking Amoxicillin, but they aren't sure. He seems confused. He denies ear pain, sore throat. Doesn't think he has had a fever. Has non productive cough. No dysuria. No vomiting or diarrhea. Onset (ago): day(s) (1) Consistency: intermittent Associated symptoms: confusion, cough, fever/chills, malaise Treatments prior to arrival: none - Related Data Home Medications Medication Instructions Recorded Confirmed Aspirin [Aspir 81] 81 mg PO HS 07/31/19 10/16/19 Dapsone 150 mg PO DAILY 07/31/19 10/16/19 Levothyroxine Sodium 50 mcg PO DAILY 07/31/19 10/16/19 [Levothyroxine 50mcg (0.05mg) Tab] Metoprolol Tartrate [Lopressor 12.5 mg PO BID 07/31/19 10/16/19 25mg tablet] Nitroglycerin 0.4 mg SL NEEDED PRN 07/31/19 10/16/19 Omeprazole [Omeprazole 20mg 20 mg PO DAILY 07/31/19 10/16/19 Capsule] Previous Rx's Medication Instructions Recorded Ciprofloxacin HCl [Cipro 500mg 500 mg PO BID #10 tab 10/17/19 Tab] metroNIDAZOLE [metroNIDAZOLE 500mg 500 mg PO TID #15 tab 10/17/19 Tablet] Allergies Allergy/AdvReac Type Severity Reaction Status Date / Time tuberculin, purified protein Allergy Unknown Verified 07/31/19 08:56 deriva [TUBERCULIN, PURIFIED PROTEIN DERIVA] - Worker's Comp Is this a Worker's Comp case?: No [facility] History - Hepatitis A Screen Drug use history?: No High risk sexual behaviors?: No History of sexually transmitted infection?: No Currently employed?: No Childcare worker?: No Do you have indoor plumbing?: Yes Do you have electricity?: Yes Attestation statement:: This patient has been screened for Hepatitis A risk factors. I have reviewed the patient's past medical history: Yes Medical History: Reports:: Cancer (COLON), Coronary Artery Disease, Gastroesophageal Reflux Disease(GERD), Hypertension Denies:: Diabetes Mellitus Type 1, Diabetes Mellitus Type 2, Seizures Other Medical History: Reports: Anemia, Cataracts, Hypothyroidism Other Surgeries: Yes: Cancer Surgery (SKIN CANCERS REMOVED), Cardiac Catheterization, Hernia Repair, Other (LEFT HAND SURGERY) - Social History Smoking Status: Current every day smoker Tobacco Type: cigarettes # Packs/Day (cigarettes): 1 Alcohol Intake: never Substance Use Type: denies use Occupational Status: retired Housing: house Household Members: none Family Hx:: Anemia, Cancer, Coronary Artery Disease, Diabetes, Stroke, Thyroid Disorder, Alcoholism, Mental illness ROS Obtained: Yes All systems reviewed & no additional complaints - Constitutional Constitutional: Reports chills, Reports malaise, Reports weakness - Respiratory Respiratory: Yes cough Physical Exam - General General appearance: alert, other (appears chronically ill/frail, hard of hearing, legally blind) - Head Head exam: atraumatic, normocephalic - Eye Eye exam: Present: other - Expanded Eye Exam Pupils: Bilateral: non reactive/fixed - ENT ENT exam: Present: normal exam, mucous membranes moist, other (edentulous) - Chest Chest inspection: Present: normal inspection, symmetric chest wall rise - Respiratory Respiratory exam: Absent: normal lung sounds bilaterally - Expanded Respiratory Exam Location: Left: decreased breath sounds, Right: decreased breath sounds, Upper: decreased breath sounds, Lower: decreased breath sounds - Cardiovascular Cardiovascular exam: Present: regular rate, tachycardia - Abdominal Exam Abdominal exam: Present: soft, distention - Extremities Exam Extremities exam: Present: normal inspection - Neurological Exam Neurological exam: Present: alert, other (family states seems confused) - Psychiatric Psychiatric exam: Present: normal affect - Skin Skin exam: Present: warm, dry, intact
[2019-10-31 15:00] LABS: Basophils % 0.2 % (0.1-2.0); Eosinophils # 0.1 K/mm3 (0.0-0.4); Eosinophils % 0.8 % (0.1-12.0); Lymphocytes # 0.2 K/mm3 (0.7-4.5); Lymphocytes % 1.7 % (10-50); Mean Corpuscular Volume 88.7 fl (80-94); Mean Platelet Volume 6.9 fl (7.4-10.4); Monocytes # 0.2 K/mm3 (0.1-1.0); Monocytes % 1.3 % (1.7-9.3); Neutrophils # 10.5 K/mm3 (1.8-7.8); Neutrophils % 95.9 % (37.0-80.0); Platelet Count 544 K/mm3 (142-424); Red Blood Count 2.97 M/mm3 (4.60-6.20); Red Cell Distribution Width 20.7 % (11.5-17.5); White Blood Count 10.9 K/mm3 (4.8-10.8)
[2019-10-31 15:04] LABS: Hematocrit 26.4 % (42.0-52.0)
[2019-10-31 15:05] LABS: Hemoglobin 7.9 g/dL (14.1-18.0)
[2019-10-31 15:15] LABS: Eosinophils % 1 % (0-3); Hypochromasia 1+; Lymphocytes % 3 % (10-50); Monocytes % 5 % (2-9); Neutrophils % 91 % (42-76); Total Cells Counted 100
[2019-10-31 15:17] LABS: Albumin Level 2.2 gm/dL (3.4-5.0); Albumin/Globulin Ratio 0.5 (1.1-1.8); Anion Gap 12.2 mEq/L (5-15); Bilirubin,Total 1.3 mg/dL (0.2-1.0); Calcium 7.9 mg/dL (8.5-10.1); Globulin 4.1 gm/dl (1.3-3.2); Total Protein,Serum 6.3 gm/dL (6.4-8.2)
--- NOTE | 2019-10-31 18:47 | Emergency Department Note ---
ED Disposition Clinical Impression: Hypokalemia, Lactic acid increased, Electrolyte imbalance Anemia Qualifiers: Anemia type: iron deficiency Iron deficiency anemia type: chronic blood loss Qualified Code(s): D50.0 - Iron deficiency anemia secondary to blood loss (chronic) Sepsis Qualifiers: Sepsis type: sepsis due to unspecified organism Sepsis acute organ dysfunction status: without acute organ dysfunction Qualified Code(s): A41.9 - Sepsis, unspecified organism Urinary tract infection Qualifiers: Urinary tract infection type: site unspecified Hematuria presence: without hematuria Qualified Code(s): N39.0 - Urinary tract infection, site not specified Colon cancer Qualifiers: Colon location: sigmoid Qualified Code(s): C18.7 - Malignant neoplasm of sigm oid colon Disposition: Admitted as Observation Condition on Discharge: Fair Additional Instructions: Transferred to ER. Presumed UTI but unable to provide specimen at this time. Referrals: Obdulia Granados APRN [Primary Care Provider] - Time of Disposition: 19:10 - Critical Care Critical Care Time: Yes Attestation: On 10/31/19, the high probability of a clinically significant, sudden or life threatening deterioration of the following system(s) required my full and direct attention, intervention and personal management. The time I documented below is in addition to time spent performing reported procedures but includes the following listed in this critical care notation. Vital system(s) involved:: Circulatory Failure, Metabolic Failure, Shock (Septic) My critical care processes included: Assessment & monitoring of V/S, Initial and Re-exams, Data Review/Interpretation, Coordinating Care, Medication Orders and management, Documentation Medical Decision Making - [place] Inquiry Pt receiving controlled substance: No Vital Signs: 10/31/19 13:46 10/31/19 13:52 10/31/19 14:06 Temperature 98.4 F 98.4 F Temperature Source Oral Oral Pulse Rate [Radial] 139 H 138 H 139 H Respiratory Rate 26 H 18 26 H Blood Pressure [Right Arm] 114/52 L 114/52 L Blood Pressure Mean [Right Arm] 72 72 Blood Pressure Source [Right Arm] Automatic Cuff Automatic Cuff Blood Pressure Position [Right Arm] Sitting Sitting 02 Sat by Pulse Oximetry 92 L 95 92 L Oxygen Delivery Method Room Air Room Air Room Air 10/31/19 14:46 10/31/19 17:29 Temperature Temperature Source Pulse Rate [Radial] 101 H 105 H Respiratory Rate Blood Pressure [Right Arm] 131/62 130/70 Blood Pressure Mean [Right Arm] 85 90 Blood Pressure Source [Right Arm] Automatic Cuff Automatic Cuff Blood Pressure Position [Right Arm] Sitting Sitting 02 Sat by Pulse Oximetry 93 L 93 L Oxygen Delivery Method Room Air - Lab Data Lab results reviewed: Yes: I reviewed the patient's lab results. Lab Results 10/31/19 14:19: Influenza Type A Ag Negative, Influenza Type B Ag Negative 10/31/19 14:40: WBC 10.9 H, RBC 2.97 L, Hgb 7.9 L*, Hct 26.4 L, MCV 88.7, MCH 26.6 L, MCHC 30.0 L, RDW 20.7 H, Plt Count 544 H, MPV 6.9 L, Neut % (Auto) 95.9 H, Lymph % (Auto) 1.7 L, [place] % (Auto) 1.3 L, Eos % (Auto) 0.8, Baso % (Auto) 0.2, Neut # (Auto) 10.5 H, Lymph # (Auto) 0.2 L, [place] # (Auto) 0.2, Eos # (Auto) 0.1, Baso # (Auto) 0.0, Total Counted 100, Neutrophils % (Manual) 91 H, Lymphocytes % (Manual) 3 L, Monocytes % (Manual) 5, Eosinophils % (Manual) 1, Platelet Estimate Slight increase, Hypochromasia 1+, Poikilocytosis 1+, Acanthocytes (Spur) 1+ 10/31/19 14:40: Lactate 4.3 H 10/31/19 14:40: Sodium 129 L, Potassium 3.2 L, Chloride 97 L, Carbon Dioxide 23, Anion Gap 12.2, BUN 12, Creatinine 1.08, Estimated Creat Clear 43, Estimated GFR 66, Est GFR ( Amer) 79, Glucose 125 H, Calcium 7.9 L, Total Bilirubin 1.3 H, AST 33, ALT 12, Alkaline Phosphatase 107, Total Protein 6.3 L, Albumin 2.2 L, Globulin 4.1 H, Albumin/Globulin Ratio 0.5 L 10/31/19 18:46: Urine Color [place], Urine Appearance Turbid, Urine pH 6.5, Ur Specific [place] 1.020, Urine Protein 2+, Urine Glucose (UA) 1+, Urine Ketones Trace, Urine Blood 2+, Urine Nitrate Positive, Urine Bilirubin Negative, Urine Urobilinogen 4.0, Ur Leukocyte Esterase Trace Result diagrams: 10/31/19 14:40 10/31/19 14:40 Orders (Tests/Meds): ED MEDICATIONS Discontinued Medications Generic Name Dose Route Start Last Admin Trade Name Freq PRN Reason Stop Dose Admin Sodium Chloride 1,710 mls @ 855 mls/hr 10/31/19 16:05 10/31/19 16:05 Sod Chlor 0.9% 1000ml Bag 30 ml/kg infuse over 2 hr (1710 ml) 10/31/19 18:04 855 mls/hr IV Administration .Q2H ONE Ceftriaxone Sodium 1 gm/ 50 mls @ 100 mls/hr 10/31/19 16:32 10/31/19 16:50 Sodium Chloride IV 10/31/19 17:01 100 mls/hr ONCE STA Administration Protocol ORDERS Category Date Time Status CT abdomen pelvis w con Stat Cat Scan 10/31/19 18:42 Ordered Lactic Acid Follow Up (RFLX 1) Stat Lab 10/31/19 18:54 Ordered Urinalysis and Microscopic Stat Lab 10/31/19 18:46 Results Blood Culture Stat Micro 10/31/19 14:40 Received Blood Culture Stat Micro 10/31/19 16:31 Ordered - Physician Consults Physician Consulted: Dr. Andrea Time: 18:55 Reason -: Admission Comment/Response: Discussed with Dr. Parker, primary care provider for the patient regarding the patient and plan to admit the patient for urinary tract infection with sepsis . - Reevaluation(s) Time: 19:06 Reevaluation #1: Patient has been stable throughout the course of stay in the ER. Has been stable throughout the course of stay in the ER. Plan to discuss the case with the hospitalist in order to admit the patient. General Adult HPI - General Chief complaint: Recheck/Abnormal Lab/Rx Stated complaint: shaking spells and says he cold Time Seen by Provider: 10/31/19 16:10 Mode of Arrival: Family Vehicle Source of Information: Patient Limitations: No Limitations Description of Symptoms (Recalled from ER Triage Doc. by RN): C/O BEING SHAKEY AND COLD. HAS DX OF COLON CANCER AND WAS IN HOSPITAL LAST WEEK - History of Present Illness HPI narrative: 79-year-old male was brought in from the urgent treatment center for further evaluation and management of the elevated lactic acid and anemia and further management for the symptoms that he was having. Patient was having shakes and chills from early in the morning according to the family members and the patient. He was having some shaking and chills episode yesterday too. The symptoms started yesterday evening. Had not checked his temperature. Patient was recently diagnosed to have colon cancer. He was taken to [facility] for the same. He was planned to get chemo and radiotherapy but his prognosis was very poor. Onset (ago): day(s) (1) Associated symptoms: confusion, cough, fever/chills, malaise Treatments prior to arrival: none - Related Data Home Medications Medication Instructions Recorded Confirmed Aspirin [Aspir 81] 81 mg PO HS 07/31/19 10/16/19 Dapsone 150 mg PO DAILY 07/31/19 10/16/19 Levothyroxine Sodium 50 mcg PO DAILY 07/31/19 10/16/19 [Levothyroxine 50mcg (0.05mg) Tab] Metoprolol Tartrate [Lopressor 12.5 mg PO BID 07/31/19 10/16/19 25mg tablet] Nitroglycerin 0.4 mg SL NEEDED PRN 07/31/19 10/16/19 Omeprazole [Omeprazole 20mg 20 mg PO DAILY 07/31/19 10/16/19 Capsule] Previous Rx's Medication Instructions Recorded Ciprofloxacin HCl [Cipro 500mg 500 mg PO BID #10 tab 10/17/19 Tab] metroNIDAZOLE [metroNIDAZOLE 500mg 500 mg PO TID #15 tab 10/17/19 Tablet] Allergies Allergy/AdvReac Type Severity Reaction Status Date / Time tuberculin, purified protein Allergy Unknown Verified 07/31/19 08:56 deriva [TUBERCULIN, PURIFIED PROTEIN DERIVA] [facility] History - Hepatitis A Screen Drug use history?: No High risk sexual behaviors?: No History of sexually transmitted infection?: No Currently employed?: No Childcare worker?: No Do you have indoor plumbing?: Yes Do you have electricity?: Yes Attestation statement:: This patient has been screened for Hepatitis A risk factors. I have reviewed the patient's past medical history: Yes Medical History: Reports:: Cancer (COLON), Coronary Artery Disease, Gastroesophageal Reflux Disease(GERD), Hypertension Denies:: Diabetes Mellitus Type 1, Diabetes Mellitus Type 2, Seizures Other Medical History: Reports: Anemia, Cataracts, Hypothyroidism Other Surgeries: Yes: Cancer Surgery (SKIN CANCERS REMOVED), Cardiac Catheterization, Hernia Repair, Other (LEFT HAND SURGERY) - Social History Smoking Status: Current every day smoker Tobacco Type: cigarettes # Packs/Day (cigarettes): 1 Alcohol Intake: never Substance Use Type: denies use Occupational Status: retired Housing: house Household Members: none Family Hx:: Anemia, Cancer, Coronary Artery Disease, Diabetes, Stroke, Thyroid Disorder, Alcoholism, Mental illness ROS Obtained: Yes All systems reviewed & no additional complaints Physical Exam - General General appearance: alert, other (appears chronically ill/frail, hard of hearing, legally blind, patient looks pale in his tongue and oral mucosa.) - Head Head exam: atraumatic, normocephalic, normal inspection - Eye Eye exam: Present: normal appearance, PERRL, EOMI - ENT ENT exam: Present: normal exam, normal oropharynx, mucous membranes moist, normal external ear exam - Neck Neck exam: Present: normal inspection, full ROM - Chest Chest inspection: Present: normal inspection, symmetric chest wall rise. Absent: tenderness - Respiratory Respiratory exam: Present: normal lung sounds bilaterally, respiratory distress, other (Bilateral decreased air entry.) - Cardiovascular Cardiovascular exam: Present: regular rate, tachycardia - Abdominal Exam Abdominal exam: Present: soft, distention, tenderness (Tenderness on the lower part of the abdomen and the suprapubic area.) - Extremities Exam Extremities exam: Present: normal inspection, full ROM, normal capillary refill. Absent: calf tenderness - Back Exam Back exam: Present: normal inspection. Absent: tenderness - Neurological Exam Neurological exam: Present: alert, CN II-XII intact, other (Patient is hard of hearing. Legally blind.) - Psychiatric Psychiatric exam: Present: normal affect, normal mood - Skin Skin exam: Present: warm, dry
[2019-10-31 18:52] LABS: Microscopic, Urine URINE MICROSCOPIC (MICROSCOPIC)
[2019-10-31 18:55] LABS: Appearance,Urine TURBID (Clear); Blood, Urine 2+ (Negative); Color,Urine AMBER (Yellow); Glucose,Urine (UA) 1+ (Negative); Ketones,Urine TRACE (Negative); Leukocyte Esterase,Urine TRACE (Negative); PH,Urine 6.5 (5.0-8.5); Protein,Urine 2+ (Negative)
[2019-10-31 18:57] LABS: Bilirubin,Urine Negative (Negative)
[2019-10-31 19:04] LABS: Amorphous Sediment,Urine 1+ /lpf; Bacteria,Urine 3+ /lpf; Coarse Granular Casts,Urine Occasional #/lpf (0); Mucus,Urine 1+ /lpf
--- NOTE | 2019-10-31 19:44 | Sepsis Event Note ---
[facility] Tissue Perfusion Eval Sepsis Re-Evaluation Performed: Yes Date Performed: 10/31/19 Time Performed: 19:44
[2019-11-01 07:14] LABS: Basophils % 0.5 % (0.1-2.0); Eosinophils % 0.5 % (0.1-12.0); Lymphocytes # 0.6 K/mm3 (0.7-4.5); Lymphocytes % 6.6 % (10-50); Mean Corpuscular HGB Conc 30.7 g/dL (31.8-35.4); Mean Corpuscular Volume 89.5 fl (80-94); Mean Platelet Volume 7.1 fl (7.4-10.4); Monocytes # 0.2 K/mm3 (0.1-1.0); Monocytes % 2.9 % (1.7-9.3); Neutrophils # 7.4 K/mm3 (1.8-7.8); Neutrophils % 89.6 % (37.0-80.0); Platelet Count 324 K/mm3 (142-424); Red Blood Count 2.59 M/mm3 (4.60-6.20); Red Cell Distribution Width 18.7 % (11.5-17.5); White Blood Count 8.3 K/mm3 (4.8-10.8)
[2019-11-01 07:25] LABS: Anion Gap 10.1 mEq/L (5-15); Calcium 7.4 mg/dL (8.5-10.1); Hemoglobin 7.1 g/dL (14.1-18.0)
--- NOTE | 2019-11-01 08:15 | H&P/Discharge Summary ---
General - General Admission date:: 10/31/19 Discharge date: 11/01/19 *Admission Date: 10/31/19 *Chief complaint: Shaking *History of present illness: 79-year-old male with recently diagnosed rectosigmoid adenocarcinoma was brought to the emergency department by family because of shaking. Yesterday afternoon patient began shaking uncontrollably and family became concerned about his health and brought him to the emergency department. In the emergency department he underwent work-up and met sepsis criteria. He is recently had a urinary tract infection with Enterococcus faecalis is the organism. He had a hospi talization 2 weeks ago where his adenocarcinoma of the colon was finally diagnosed although there has been suspicion of colon cancer for several years now due to persistent and recurrent anemia. Patient was admitted for IV antibiotics and IV fluids with further monitoring. Patient tells me this morning that he agreed to stay for 1 night only. Family is at bedside. Regarding his adenocarcinoma he was seen at the [facility] by the colorectal cancer surgeon and due to the patient's desire to not end up in a snf it was felt like the best course of action for the patient was hospice care. Family is in agreement with this. Patient states he is already feeling better this morning and he wishes to be discharged. [facility] History I have reviewed the patient's past medical history: Yes Medical History: Reports:: Cancer (Adenocarcinoma of the rectosigmoid colon, SKIN CANCER REMOVALS), Coronary Artery Disease, Gastroesophageal Reflux Disease(GERD), Hypertension Denies:: Diabetes Mellitus Type 1, Diabetes Mellitus Type 2, Seizures *Have you ever received a pneumonia vaccine?: No (REFUSED) *Have you received a flu vaccine this season?: No (REFUSED) Other Medical History: Reports: Anemia, Cataracts, Hypothyroidism, Thyroid Disease Other Surgeries: Yes: Cancer Surgery (SKIN CANCERS REMOVED), Cardiac Catheterization, Hernia Repair, Other (LEFT HAND SURGERY) - *Social History Educational Level: Attended Grade School Smoking Status: Current every day smoker Tobacco Type: smokeless tobacco # Packs/Day (cigarettes): 0 Alcohol Intake: former Alcohol Intake Frequency:: 3 or more drinks per day Substance Use Type: denies use *Occupational Status:: retired Housing: house Household Members: none *Travel in the last 8 weeks: None Family Hx:: Anemia, Cancer, Coronary Artery Disease, Diabetes, Stroke, Thyroid Disorder, Alcoholism, Mental illness Review of Systems - Constitutional Reports chills, Reports lack of energy, Reports malaise, Denies anorexia, Denies body ache(s) - *Cardiovascular Denies chest pain, Denies chest pain at rest - *Respiratory Denies change in phlegm color, Denies chest congestion, Denies cough - *Gastrointestinal Reports bloating, Reports change in bowel habits, Denies abdominal pain - *Neurologic Reports weakness Exam Vital signs and Labs for Last 24 Hours: Temp Pulse Resp BP Pulse Ox 98.1 F 83 20 124/40 L 93 L 11/01/19 04:00 11/01/19 04:00 11/01/19 04:00 11/01/19 04:24 11/01/19 04:00 Laboratory Results - last 24 hr 10/31/19 14:19: Influenza Type A Ag Negative, Influenza Type B Ag Negative 10/31/19 14:40: WBC 10.9 H, RBC 2.97 L, Hgb 7.9 L*, Hct 26.4 L, MCV 88.7, MCH 26.6 L, MCHC 30.0 L, RDW 20.7 H, Plt Count 544 H, MPV 6.9 L, Neut % (Auto) 95.9 H, Lymph % (Auto) 1.7 L, [place] % (Auto) 1.3 L, Eos % (Auto) 0.8, Baso % (Auto) 0.2, Neut # (Auto) 10.5 H, Lymph # (Auto) 0.2 L, [place] # (Auto) 0.2, Eos # (Auto) 0.1, Baso # (Auto) 0.0, Total Counted 100, Neutrophils % (Manual) 91 H, Lymphocytes % (Manual) 3 L, Monocytes % (Manual) 5, Eosinophils % (Manual) 1, Platelet Estimate Slight increase, Hypochromasia 1+, Poikilocytosis 1+, Acanthocytes (Spur) 1+ 10/31/19 14:40: Lactate 4.3 H 10/31/19 14:40: Sodium 129 L, Potassium 3.2 L, Chloride 97 L, Carbon Dioxide 23, Anion Gap 12.2, BUN 12, Creatinine 1.08, Estimated Creat Clear 43, Estimated GFR 66, Est GFR ( Amer) 79, Glucose 125 H, Calcium 7.9 L, Total Bilirubin 1.3 H, AST 33, ALT 12, Alkaline Phosphatase 107, Total Protein 6.3 L, Albumin 2.2 L, Globulin 4.1 H, Albumin/Globulin Ratio 0.5 L 10/31/19 18:46: Urine Color Arianna, Urine Appearance Turbid, Urine pH 6.5, Ur Specific Watson 1.020, Urine Protein 2+, Urine Glucose (UA) 1+, Urine Ketones Trace, Urine Blood 2+, Urine Nitrate Positive, Urine Bilirubin Negative, Urine Urobilinogen 4.0, Ur Leukocyte Esterase Trace, Urine RBC 5-10, Urine WBC 10-20, Ur Squamous Epith Cells 5-10, Amorphous Sediment 1+, Urine Bacteria 3+, Coarse Granular Casts Occasional, Urine Mucus 1+ 10/31/19 19:10: Lactate 2.1 H 10/31/19 21:20: Lactate 1.3 11/01/19 06:25: POC Glucose 88 11/01/19 07:00: WBC 8.3, RBC 2.59 L, Hgb 7.1 L*, Hct 23.1 L*, MCV 89.5, MCH 27.4, MCHC 30.7 L, RDW 18.7 H, Plt Count 324 D, MPV 7.1 L, Neut % (Auto) 89.6 H , Lymph % (Auto) 6.6 L, [place] % (Auto) 2.9, Eos % (Auto) 0.5, Baso % (Auto) 0.5, Neut # (Auto) 7.4, Lymph # (Auto) 0.6 L, [place] # (Auto) 0.2, Eos # (Auto) 0.0, Baso # (Auto) 0.0 11/01/19 07:00: Sodium 137, Potassium 3.1 L, Chloride 104, Carbon Dioxide 26, Anion Gap 10.1, BUN 9, Creatinine 0.78 D, Estimated Creat Clear 43, Estimated GFR 96, Est GFR ( Amer) 116 D, Glucose 77 D, Calcium 7.4 L I & O for Last 24 hours: Intake & Output 10/29/19 10/30/19 10/31/19 11/01/19 11:59 11:59 11:59 11:59 Intake Total 2771 / 2771 Balance 2771 / 2771 Weight 116 lb 5 oz - Constitutional no acute distress - *Routine HEENT Exam Head: Present: normocephalic Eye: Present: EOMI ENT: Present: mucous membranes moist - *Routine Neck Exam Present: supple, full ROM. Absent: JVD, carotid bruit - *Routine Respiratory Exam Present: CTA bilaterally - *Routine Cardiovascular Exam Present: RRR, Normal S1, Normal S2 - *Routine Abdominal Exam Present: soft, normoactive bowel sounds. Absent: tenderness, distended, rebound, guarding, firm - *Routine Extremities Exam Present: full ROM Hospital Course Hospital Course: Patient was admitted. He was started on broad-spectrum antibiotics due to meeting admission criteria of sepsis. He received his fluid bolus. Following morning patient hemoglobin had declined to 7.1. Patient strongly desired to discharged home. Discussion was had with the patient and the family regarding the involvement of hospice and hospice was consulted while the patient was in- house. He was transfused 2 units of packed red blood cells. He was then discharged home. Patient will be discharged home under the care of hospice for his colon cancer. A family member was asked to stay here at the hospital and to be available and hospice arrived. Results Labs on day of discharge: Labs from last 24 hours 11/01/19 11/01/19 11/01/19 07:00 07:00 06:25 WBC 8.3 RBC 2.59 L Hgb 7.1 L* Hct 23.1 L* MCV 89.5 MCH 27.4 MCHC 30.7 L RDW 18.7 H Plt Count 324 D MPV 7.1 L Neut % (Auto) 89.6 H Lymph % (Auto) 6.6 L [place] % (Auto) 2.9 Eos % (Auto) 0.5 Baso % (Auto) 0.5 Neut # (Auto) 7.4 Lymph # (Auto) 0.6 L [place] # (Auto) 0.2 Eos # (Auto) 0.0 Baso # (Auto) 0.0 Total Counted Neutrophils % (Manual) Lymphocytes % (Manual) Monocytes % (Manual) Eosinophils % (Manual) Platelet Estimate Hypochromasia Poikilocytosis Acanthocytes (Spur) Sodium 137 Potassium 3.1 L Chloride 104 Carbon Dioxide 26 Anion Gap 10.1 BUN 9 Creatinine 0.78 D Estimated Creat Clear 43 Estimated GFR 96 Est GFR ( Amer) 116 D Glucose 77 D POC Glucose 88 Lactate Calcium 7.4 L Total Bilirubin AST ALT Alkaline Phosphatase Total Protein Albumin Globulin Albumin/Globulin Ratio Urine Color Urine Appearance Urine pH Ur Specific Watson Urine Protein Urine Glucose (UA) Urine Ketones Urine Blood Urine Nitrate Urine Bilirubin Urine Urobilinogen Ur Leukocyte Esterase Urine RBC Urine WBC Ur Squamous Epith Cells Amorphous Sediment Urine Bacteria Coarse Granular Casts Urine Mucus Influenza Type A Ag Influenza Type B Ag 10/31/19 10/31/19 10/31/19 21:20 19:10 18:46 WBC RBC Hgb Hct MCV MCH MCHC RDW Plt Count MPV Neut % (Auto) Lymph % (Auto) [place] % (Auto) Eos % (Auto) Baso % (Auto) Neut # (Auto) Lymph # (Auto) [place] # (Auto) Eos # (Auto) Baso # (Auto) Total Counted Neutrophils % (Manual) Lymphocytes % (Manual) Monocytes % (Manual) Eosinophils % (Manual) Platelet Estimate Hypochromasia Poikilocytosis Acanthocytes (Spur) Sodium Potassium Chloride Carbon Dioxide Anion Gap BUN Creatinine Estimated Creat Clear Estimated GFR Est GFR ( Amer) Glucose POC Glucose Lactate 1.3 2.1 H Calcium Total Bilirubin AST ALT Alkaline Phosphatase Total Protein Albumin Globulin Albumin/Globulin Ratio Urine Color Arianna Urine Appearance Turbid Urine pH 6.5 Ur Specific Watson 1.020 Urine Protein 2+ Urine Glucose (UA) 1+ Urine Ketones Trace Urine Blood 2+ Urine Nitrate Positive Urine Bilirubin Negative Urine Urobilinogen 4.0 Ur Leukocyte Esterase Trace Urine RBC 5-10 Urine WBC 10-20 Ur Squamous Epith Cells 5-10 Amorphous Sediment 1+ Urine Bacteria 3+ Coarse Granular Casts Occasional Urine Mucus 1+ Influenza Type A Ag Influenza Type B Ag 10/31/19 10/31/19 10/31/19 14:40 14:40 14:40 WBC 10.9 H RBC 2.97 L Hgb 7.9 L* Hct 26.4 L MCV 88.7 MCH 26.6 L MCHC 30.0 L RDW 20.7 H Plt Count 544 H MPV 6.9 L Neut % (Auto) 95.9 H Lymph % (Auto) 1.7 L [place] % (Auto) 1.3 L Eos % (Auto) 0.8 Baso % (Auto) 0.2 Neut # (Auto) 10.5 H Lymph # (Auto) 0.2 L [place] # (Auto) 0.2 Eos # (Auto) 0.1 Baso # (Auto) 0.0 Total Counted 100 Neutrophils % (Manual) 91 H Lymphocytes % (Manual) 3 L Monocytes % (Manual) 5 Eosinophils % (Manual) 1 Platelet Estimate Slight increase Hypochromasia 1+ Poikilocytosis 1+ Acanthocytes (Spur) 1+ Sodium 129 L Potassium 3.2 L Chloride 97 L Carbon Dioxide 23 Anion Gap 12.2 BUN 12 Creatinine 1.08 Estimated Creat Clear 43 Estimated GFR 66 Est GFR ( Amer) 79 Glucose 125 H POC Glucose Lactate 4.3 H Calcium 7.9 L Total Bilirubin 1.3 H AST 33 ALT 12 Alkaline Phosphatase 107 Total Protein 6.3 L Albumin 2.2 L Globulin 4.1 H Albumin/Globulin Ratio 0.5 L Urine Color Urine Appearance Urine pH Ur Specific Watson Urine Protein Urine Glucose (UA) Urine Ketones Urine Blood Urine Nitrate Urine Bilirubin Urine Urobilinogen Ur Leukocyte Esterase Urine RBC Urine WBC Ur Squamous Epith Cells Amorphous Sediment Urine Bacteria Coarse Granular Casts Urine Mucus Influenza Type A Ag Influenza Type B Ag 10/31/19 14:19 WBC RBC Hgb Hct MCV MCH MCHC RDW Plt Count MPV Neut % (Auto) Lymph % (Auto) [place] % (Auto) Eos % (Auto) Baso % (Auto) Neut # (Auto) Lymph # (Auto) [place] # (Auto) Eos # (Auto) Baso # (Auto) Total Counted Neutrophils % (Manual) Lymphocytes % (Manual) Monocytes % (Manual) Eosinophils % (Manual) Platelet Estimate Hypochromasia Poikilocytosis Acanthocytes (Spur) Sodium Potassium Chloride Carbon Dioxide Anion Gap BUN Creatinine Estimated Creat Clear Estimated GFR Est GFR ( Amer) Glucose POC Glucose Lactate Calcium Total Bilirubin AST ALT Alkaline Phosphatase Total Protein Albumin Globulin Albumin/Globulin Ratio Urine Color Urine Appearance Urine pH Ur Specific Watson Urine Protein Urine Glucose (UA) Urine Ketones Urine Blood Urine Nitrate Urine Bilirubin Urine Urobilinogen Ur Leukocyte Esterase Urine RBC Urine WBC Ur Squamous Epith Cells Amorphous Sediment Urine Bacteria Coarse Granular Casts Urine Mucus Influenza Type A Ag Negative Influenza Type B Ag Negative DS: Diagnosis - Discharge Diagnosis (1) Lower GI bleed Status: Acute (2) Colon cancer Status: Acute (3) Urinary tract infection Status: Acute Discharge Plan - Patient Discharge Instructions ACTIVITY: Continue current activity Patient Instructions: DI for Dehydration -- Adult, DI for Urinary Tract Infection (UTI), DI for Hypokalemia, DI for Hyponatremia, DI for Sepsis -- Adult - Follow up Plan Disposition: Hospice - Home Home Medications: Home Medications Medication Instructions Recorded Confirmed Type Aspirin [Aspir 81] 81 mg PO HS 07/31/19 10/31/19 History Dapsone 150 mg PO DAILY 07/31/19 10/31/19 History Levothyroxine Sodium 75 mcg PO HS 07/31/19 11/01/19 History [Levothyroxine 50mcg (0.05mg) Tab] Metoprolol Tartrate [Lopressor 12.5 mg PO BID 07/31/19 10/31/19 History 25mg tablet] Nitroglycerin 0.4 mg SL NEEDED PRN 07/31/19 10/31/19 History Omeprazole [Omeprazole 20mg 20 mg PO DAILY 07/31/19 10/31/19 History Capsule] Prescriptions/Medication Reconciliation: Continued Dapsone 150 mg PO DAILY Levothyroxine Sodium [Levothyroxine 50mcg (0.05mg) Tab] 75 mcg PO HS Omeprazole [Omeprazole 20mg Capsule] 20 mg PO DAILY Metoprolol Tartrate [Lopressor 25mg tablet] 12.5 mg PO BID Nitroglycerin 0.4 mg SL NEEDED PRN PRN Reason: Chest Pain Discontinued Aspirin [Aspir 81] 81 mg PO HS - Problem Reconciliation Problems Reviewed?: Yes
[2019-11-01 08:31] LABS: Eosinophils % 2 % (0-3); Hypochromasia 1+; Lymphocytes % 9 % (10-50); Monocytes % 1 % (2-9); Neutrophils % 86 % (42-76); Total Cells Counted 100
--- NOTE | 2019-11-01 09:44 | Pharmacy Consult Notes ---
[facility] Pharmacy VTE Monitoring - Patient Demographics Admission date: 10/31/19 Report Date: 11/01/19 Time: 09:43 Allergies/Adverse Reactions: Patient Allergies tuberculin, purified protein deriva [TUBERCULIN, PURIFIED PROTEIN DERIVA] Allergy (Unknown, Verified 07/31/19 08:56) Height: 1.68 m Weight: 52.758 kg Patient Problems: Current Active Problems Urinary tract infection (Acute) Hypokalemia (Acute) Anemia (Acute) Sepsis (Acute) Electrolyte imbalance (Acute) Colon cancer (Acute) Lactic acid increased (Acute) Lower GI bleed (Acute) - VTE Risk Labs: VTE Related Lab Results Hgb 7.1 g/dL (14.1-18.0) L* 11/01/19 07:00 Hct 23.1 % (42.0-52.0) L* 11/01/19 07:00 Plt Count 324 K/mm3 (142-424) D 11/01/19 07:00 BUN 9 mg/dL (7-18) 11/01/19 07:00 Creatinine 0.78 mg/dL (0.70-1.30) D 11/01/19 07:00 Estimated Creat Clear 43 mL/min (50-200) 11/01/19 07:00 Was VTE Risk Assessment Performed: Yes VTE Score: 4 VTE Risk Level: Low Risk - Prophylaxis VTE Prophylaxis Ordered?: Yes Types of VTE Prophylaxis: TEDS Knee High Location of Applied Device: Bilateral Lower Extremeties
[2019-11-01 09:46] LABS: Hematocrit 23.1 % (42.0-52.0)
--- NOTE | 2019-11-01 10:43 | Pharmacy Consult Notes ---
- Pharmacy Consult Date: 11/01/19 Time: 10:43 Referring provider: DR. HOFFMAN Reason for Consult:: VANCOMYCIN DOSING Allergies and ADEs:: Allergies Allergy/AdvReac Type Severity Reaction Status Date / Time tuberculin, purified protein Allergy Unknown Verified 07/31/19 08:56 deriva [TUBERCULIN, PURIFIED PROTEIN DERIVA] Home Medications:: Home Medications Medication Instructions Recorded Confirmed Type Aspirin [Aspir 81] 81 mg PO HS 07/31/19 10/31/19 History Dapsone 150 mg PO DAILY 07/31/19 10/31/19 History Levothyroxine Sodium 75 mcg PO HS 07/31/19 11/01/19 History [Levothyroxine 50mcg (0.05mg) Tab] Metoprolol Tartrate [Lopressor 12.5 mg PO BID 07/31/19 10/31/19 History 25mg tablet] Nitroglycerin 0.4 mg SL NEEDED PRN 07/31/19 10/31/19 History Omeprazole [Omeprazole 20mg 20 mg PO DAILY 07/31/19 10/31/19 History Capsule] Height: 1.68 m Weight: 52.758 kg Laboratory Results:: Laboratory Results - last 24 hr 10/31/19 14:19: Influenza Type A Ag Negative, Influenza Type B Ag Negative 10/31/19 14:40: WBC 10.9 H, RBC 2.97 L, Hgb 7.9 L*, Hct 26.4 L, MCV 88.7, MCH 26.6 L, MCHC 30.0 L, RDW 20.7 H, Plt Count 544 H, MPV 6.9 L, Neut % (Auto) 95.9 H, Lymph % (Auto) 1.7 L, Stanton % (Auto) 1.3 L, Eos % (Auto) 0.8, Baso % (Auto) 0.2, Neut # (Auto) 10.5 H, Lymph # (Auto) 0.2 L, Stanton # (Auto) 0.2, Eos # (Auto) 0.1, Baso # (Auto) 0.0, Total Counted 100, Neutrophils % (Manual) 91 H, Lymphocytes % (Manual) 3 L, Monocytes % (Manual) 5, Eosinophils % (Manual) 1, Platelet Estimate Slight increase, Hypochromasia 1+, Poikilocytosis 1+, Acanthocytes (Spur) 1+ 10/31/19 14:40: Lactate 4.3 H 10/31/19 14:40: Sodium 129 L, Potassium 3.2 L, Chloride 97 L, Carbon Dioxide 23, Anion Gap 12.2, BUN 12, Creatinine 1.08, Estimated Creat Clear 43, Estimated GFR 66, Est GFR ( Amer) 79, Glucose 125 H, Calcium 7.9 L, Total Bilirubin 1.3 H, AST 33, ALT 12, Alkaline Phosphatase 107, Total Protein 6.3 L, Albumin 2.2 L, Globulin 4.1 H, Albumin/Globulin Ratio 0.5 L 10/31/19 18:46: Urine Color Arianna, Urine Appearance Turbid, Urine pH 6.5, Ur Specific [place] 1.020, Urine Protein 2+, Urine Glucose (UA) 1+, Urine Ketones Trace, Urine Blood 2+, Urine Nitrate Positive, Urine Bilirubin Negative, Urine Urobilinogen 4.0, Ur Leukocyte Esterase Trace, Urine RBC 5-10, Urine WBC 10-20, Ur Squamous Epith Cells 5-10, Amorphous Sediment 1+, Urine Bacteria 3+, Coarse Granular Casts Occasional, Urine Mucus 1+ 10/31/19 19:10: Lactate 2.1 H 10/31/19 21:20: Lactate 1.3 11/01/19 06:25: POC Glucose 88 11/01/19 06:56: Stl Aeromonas (PCR) Not detected, Stl C. cayetanensis PCR Not detected, Stool Rotavirus (PCR) Not detected, Stl Adenov F 40/41 PCR Not detected, Stool Astrovirus (PCR) Not detected, Stool Campylobacter PCR Not detected, Stl C.difficile Tox PCR Not detected, Stool Cryptosporidium PCR Not detected, Stl E.coli Shiga Tox PCR Not detected, Stool E coli O157 PCR Not detected, Stl Enterotoxigenic E PCR Not detected, Stool EPEC (PCR) Not detected, Stool EAEC (PCR) Not detected, Stl E. histolytica PCR Not detected, Stool Giardia Lamblia PCR Not detected, Stool Salmonella PCR Not detected, Stool Sapovirus (PCR) Not detected, Stl P. shigelloides PCR Not detected, Stl Shigella/EIEC PCR Not detected, St Y.enterocolitica PCR Not detected, Stool Vibrio (PCR) Not detected, Stl Vibrio cholerae PCR Not detected, Stl Norovirus GI/GII PCR Not detected 11/01/19 07:00: WBC 8.3, RBC 2.59 L, Hgb 7.1 L*, Hct 23.1 L*, MCV 89.5, MCH 27.4, MCHC 30.7 L, RDW 18.7 H, Plt Count 324 D, MPV 7.1 L, Neut % (Auto) 89.6 H , Lymph % (Auto) 6.6 L, Stanton % (Auto) 2.9, Eos % (Auto) 0.5, Baso % (Auto) 0.5, Neut # (Auto) 7.4, Lymph # (Auto) 0.6 L, Stanton # (Auto) 0.2, Eos # (Auto) 0.0, Baso # (Auto) 0.0, Total Counted 100, Neutrophils % (Manual) 86 H, Band Neutrophils % 1.0, Lymphocytes % (Manual) 9 L, Monocytes % (Manual) 1 L, Eosinophils % (Manual) 2, Metamyelocytes % 1.0, Platelet Estimate Normal, Hypochromasia 1+, Poikilocytosis 1+, Acanthocytes (Spur) 1+ 11/01/19 07:00: Sodium 137, Potassium 3.1 L, Chloride 104, Carbon Dioxide 26, Anion Gap 10.1, BUN 9, Creatinine 0.78 D, Estimated Creat Clear 43, Estimated GFR 96, Est GFR ( Amer) 116 D, Glucose 77 D, Calcium 7.4 L 11/01/19 08:55: Blood Type O Positive, Antibody Screen Negative, Crossmatch ([facility]) See Detail Medical History: Reports:: Cancer (Adenocarcinoma of the rectosigmoid colon, SKIN CANCER REMOVALS), Coronary Artery Disease, Gastroesophageal Reflux Disease(GERD), Hypertension Denies:: Diabetes Mellitus Type 1, Diabetes Mellitus Type 2, Seizures Assessment and Plan (1) Lower GI bleed Current visit: Yes Status: Acute Category: Medical Code(s): K92.2 - Gastrointestinal hemorrhage, unspecified (2) Colon cancer Current visit: Yes Status: Acute Qualifiers: Colon location: sigmoid Qualified Code(s): C18.7 - Malignant neoplasm of sigmoid colon Category: Medical Code(s): C18.9 - Malignant neoplasm of colon, unspecified (3) Urinary tract infection Current visit: Yes Status: Acute Qualifiers: Urinary tract infection type: site unspecified Hematuria presence: without hematuria Qualified Code(s): N39.0 - Urinary tract infection, site not specified Category: Medical Code(s): N39.0 - Urinary tract infection, site not specified - Assessment and plan all Dx Assessment and Plan for all problems:: BASED ON PATIENT FACTORS, RECOMMEND VANCOMYCIN 1 GM IV Q24H. PHARMACY WILL FOLLOW DAILY AND ADJUST APPROPRIATE.
== END 2019-11-01 15:52 | disposition hospice, home (50) ==
LOC: ER 13:45 → UTC 13:45 → 2ND 13:45
PROVIDERS: ADMIT Internal Medicine Adolescent Medicine; ATTEND Family Medicine
DX: K92.2 Gastrointestinal hemorrhage, unspecified; I10 Essential (primary) hypertension; C18.7 Malignant neoplasm of sigmoid colon; E87.8 Other disorders of electrolyte and fluid balance, not elsewhere classified; D50.0 Iron deficiency anemia secondary to blood loss (chronic); R74.0 Nonspecific elevation of levels of transaminase and lactic acid dehydrogenase [LDH]; Z91.018 Allergy to other foods; Z79.82 Long term (current) use of aspirin; N39.0 Urinary tract infection, site not specified; E03.9 Hypothyroidism, unspecified; Z79.899 Other long term (current) drug therapy; I25.10 Atherosclerotic heart disease of native coronary artery without angina pectoris; Z72.0 Tobacco use; E87.6 Hypokalemia
CPT/HCPCS: 36415; 71020; 71046; 74177; 80048; 80053; 81001; 82962; 83605; 85007; 85025; 86850; 87040; 87077; 87086; 87507; 87804; 96365; 96366; 96367; 99285; G0378; J3370; P9016; Q9967